=== PATIENT | male | born 1975 | race Caucasian/White ===

== ENCOUNTER 2021-08-15 18:42 | Emergency (ER) | payer MEDICAID, SELFPAY ==
[2021-08-15 18:55] VITALS: BP 144/95; PULSE 77; RESP 15; O2SAT 95
--- NOTE | 2021-08-15 18:55 | CTR_ITS ---
PROCEDURE INFORMATION: Exam: CT Abdomen And Pelvis Without Contrast Exam date and time: 08/15/2021 7:13 PM Age: 45 years old Clinical indication: Abdominal pain; Localized; Right upper quadrant (ruq); Additional info: Ruq abd pain TECHNIQUE: Imaging protocol: Computed tomography of the abdomen and pelvis without contrast. Radiation optimization: All CT scans at this facility use at least one of these dose optimization techniques: automated exposure control; mA and/or kV adjustment per patient size (includes targeted exams where dose is matched to clinical indication); or iterative reconstruction. COMPARISON: No relevant prior studies available. RADIATION DOSE METRICS: Total DLP (mGy-cm): 2033.74 FINDINGS: Lungs: 5 mm lingular nodule. Diaphragm: Small hiatal hernia. Liver: Normal. No mass. Gallbladder and bile ducts: Partially contracted gallbladder. The bile ducts are normal. Pancreas: Normal. No ductal dilation. Spleen: Normal. No splenomegaly. Adrenal glands: Normal. No mass. Kidneys and ureters: Normal. No hydronephrosis. Stomach and bowel: Unremarkable. No obstruction. No mucosal thickening. Appendix: The appendix is visualized and is normal. Intraperitoneal space: Unremarkable. No free air. No significant fluid collection. Vasculature: Mild arterial calcifications. No aneurysm. Lymph nodes: Unremarkable. No enlarged lymph nodes. Urinary bladder: Unremarkable as visualized. Reproductive: Unremarkable as visualized. Bones/joints: Unremarkable. No acute fracture. Soft tissues: Unremarkable. CT/CT abdomen pelvis wo con [id number] IMPRESSION: 1. No acute finding. 2. 5 mm left pulmonary nodule. For patients at low risk (minimal or absent history of smoking and of other known risk factors), no routine follow-up is indicated. For patients at high risk (history of smoking or of other known risk factors), consider optional CT Chest at 12 months. (Reference: Ricardo) References: Lindahocandace H, et al. Guidelines for Management of Incidental Pulmonary Nodules Detected on CT Images: From the Fleischner Society 2017. Radiology. 2017;284(1):228-243.
--- NOTE | 2021-08-15 18:55 | XRR_ITS ---
PROCEDURE INFORMATION: Exam: XR Chest Exam date and time: 08/15/2021 7:19 PM Age: 45 years old Clinical indication: Other: Syncope TECHNIQUE: Imaging protocol: Radiologic exam of the chest. Views: 1 view. COMPARISON: CT abdomen pelvis wo con [id number] 08/15/2021 7:13 PM FINDINGS: Lungs: Unremarkable. No consolidation. Pleural spaces: Unremarkable. No pleural effusion. No pneumothorax. Heart/Mediastinum: Unremarkable. No cardiomegaly. Bones/joints: Probable old left clavicle fracture. No acute fracture identified. XR/XR chest 1V portable [id number] IMPRESSION: No acute finding.
--- NOTE | 2021-08-15 18:55 | CTR_ITS ---
PROCEDURE INFORMATION: Exam: CT Head Without Contrast Exam date and time: 08/15/2021 7:10 PM Age: 45 years old Clinical indication: Syncope and collapse; Additional info: Syncope, hit head TECHNIQUE: Imaging protocol: Computed tomography of the head without contrast. Radiation optimization: All CT scans at this facility use at least one of these dose optimization techniques: automated exposure control; mA and/or kV adjustment per patient size (includes targeted exams where dose is matched to clinical indication); or iterative reconstruction. COMPARISON: No relevant prior studies available. RADIATION DOSE METRICS: Total DLP (mGy-cm): 912.01 FINDINGS: Brain: Normal. No hemorrhage. Unremarkable white matter. No mass effect. Cerebral ventricles: No ventriculomegaly. Paranasal sinuses: Visualized sinuses are unremarkable. No fluid levels. Mastoid air cells: Visualized mastoid air cells are well aerated. Bones/joints: Unremarkable. No acute fracture. Soft tissues: Unremarkable. CT/CT head wo con* [id number] IMPRESSION: No acute intracranial abnormality.
--- NOTE | 2021-08-15 18:55 | ECG_ITS ---
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 Measurements Intervals [place] Rate: 72 P: 61 [place]: 177 QRS: -23 QRSD: 102 T: 32 QT: 396 QTc: 434 Interpretive Statements SINUS RHYTHM BORDERLINE LEFT AXIS DEVIATION [QRS AXIS < -20] No previous ECG available for comparison Electronically Signed On 08-16-2021 8:36:57 CDT by César Garcia M.D. [id number]
[2021-08-15 19:13] LABS: Basophils # 0.1 10^3/uL (0.0-0.1); Basophils % 0.8 %; Eosinophils # 0.4 10^3/uL (0.0-0.8); Eosinophils % 3.2 %; Hematocrit 46.8 % (42.0-52.0); Hemoglobin 15.6 g/dL (11.7-16.6); Lymphocytes # 5.4 10^3/uL (0.8-4.8); Lymphocytes % 40.3 %; Mean Corpuscular HGB Conc 33.3 g/dL (30.0-36.0); Mean Corpuscular Hemoglobin 28.9 pg (28.0-34.0); Mean Corpuscular Volume 86.8 fl (80-94); Mean Platelet Volume 10.7 fL (7.4-10.4); Monocytes % 7.8 %; Neutrophils # 6.14 10^3/uL (1.8-7.7); Neutrophils % 46.4 %; Nucleated Red Blood Cells % 0 %; Platelet Count 255 10^3/cmm (130-400); Red Blood Count 5.39 10^6/uL (4.1-5.3); Red Cell Distribution Width 13.3 % (12.1-15.1); White Blood Count 13.3 10^3/uL (4.0-10.0)
[2021-08-15 19:24] LABS: INR 0.86 (0.8-1.2)
[2021-08-15 19:34] LABS: Troponin(5th) Baseline 6 ng/L (0-15)
[2021-08-15] MEDS: ondansetron 2 mg/ML SDV 2 mL 4 MG IVP (19:39)
[2021-08-15] MEDS: sodium chloride 0.9% 1,000 ML 999 ML IV (19:39)
[2021-08-15 19:44] LABS: Alanine Aminotransferase 96 U/L (0-41); Albumin Level 4.4 g/dL (3.5-5.2); Alkaline Phosphatase 80 IU/L (40-130); Aspartate Amino Transferase 42 U/L (0-40); Blood Urea Nitrogen 10 mg/dL (6-20); Calcium 9.5 mg/dL (8.5-10.5); Carbon Dioxide 26 mmol/L (22-29); Chloride 101 mmol/L (98-107); Creatine Phosphokinase 178 U/L (39-308); Globulin 3.1 g/dL (1.3-4.6); Glomerular Filtration Rate 123.1 mL/min (90-130); Glucose 107 mg/dL (65-115); NT Pro B Type Natriuretic Pept 13 pg/mL (0-125); Osmolality Calculated 284 mOsm/kg (285-295); Sodium 137 mmol/L (136-145); Total Bilirubin 0.4 mg/dL (0.15-1.2); Total Protein 7.5 g/dL (6.6-8.7)
[2021-08-15 19:46] LABS: Alcohol Level < 10 mg/dL (0-10)
[2021-08-15 19:47] LABS: Anion Gap 14.1 (5-19); Potassium 4.1 mmol/L (3.5-5.1)
[2021-08-15 20:34] LABS: Troponin 5 2HR Delta 0 ABS# (0-10)
--- NOTE | 2021-08-15 20:55 | ECG_ITS ---
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 Measurements Intervals [place] Rate: 66 P: 47 [place]: 174 QRS: -24 QRSD: 101 T: 22 QT: 417 QTc: 439 Interpretive Statements SINUS RHYTHM BORDERLINE LEFT AXIS DEVIATION [QRS AXIS < -20] No previous ECG available for comparison Electronically Signed On 08-16-2021 8:38:48 CDT by César Garcia M.D. [email or web address]
[2021-08-15] MEDS: ketorolac 30 mg/mL INJ 15 MG IVP (22:22)
[2021-08-15 22:37] VITALS: BP 138/81; PULSE 81; RESP 16; TEMP 36.7; O2SAT 96
--- NOTE | 2021-08-17 14:23 | W.ED.SYNCOPE ---
HPI - Syncope General: Chief Complaint: Syncope Stated Complaint: SYNCOPE Time Seen by Provider: 08/15/21 18:48 Source: patient History of Present Illness: 45 year old male staying at a local rehabilitation facility. He presents after a syncopal episode. He was evidently sitting on the bed. He became dizzy and nauseated. He woke up to someone shaking him. He notes that he has had belly pain for the past three days or so on and off. He vomited after his syncopal episode. He has a headache now as well. No weakness, no numbness. MD complaint: loss of consciousness Onset (ago): minute(s) -: second(s) Description of event: other Prodromal symptoms: headache, lightheaded and nausea/vomiting Witnessed: Yes - by Bystander Context: at rest Injuries sustained associated with event: none Associated symptoms: Reports abdominal pain, headache(s), lightheadedness and nausea; Deny chest pain, fever(s), short of breath, vertigo or weakness Review of Systems Const: Denies: fever(s) Eyes: Denies: change in vision ENMT: Denies: throat pain Card: Reports: lightheadedness; Denies: chest pain Resp: Denies: dyspnea, productive cough or non-productive cough GI: Reports: abdominal pain, nausea, vomiting and diarrhea Neuro: Reports: headache(s); Denies: vertigo Physical Exam Const: COMMON NORMALS: no acute distress GENERAL APPEARANCE: cooperative, comfortable and well kempt; not ill appearing and not frail appearing HENMT: COMMON NORMALS: normocephalic and atraumatic HEAD & SCALP: normocephalic and atraumatic FACE & SINUS: normal facial exam and face symmetric Eye: COMMON NORMALS: Equal, round and reactive pupils present and EOMs intact bilaterally PUPIL: Yes Equal, round and reactive pupils present Neck/C-Spine: GENERAL: Yes trachea midline Chest: CHEST: Yes Symmetrical chest wall rise Resp: COMMON NORMALS: normal respiratory effort, No retractions, No use of accessory muscles and clear to auscultation bilaterally AUSCULTATION: clear to auscultation bilaterally Cardio: COMMON NORMALS: regular rate and regular rhythm RATE: regular rate RHYTHM: regular rhythm GI: COMMON NORMALS: Normal to inspection, nondistended, normoactive bowel sounds present PALPATION: Yes Tenderness to palpation present (GI) (diffusely) Extremity: COMMON NORMALS: normal to inspection Neuro: BILL COMA SCALE: document GCS findings Bill coma scale eye opening: Spontaneous Bill coma scale verbal response: Orientated Bill coma scale motor response: Obey commands Kitzmiller coma scale total score: 15 CRANIAL NERVES: Yes CN normal except as noted COORDINATION/BALANCE: [id number] test normal SPEECH: speech normal SENSORY EXAM: Yes extremities (intact) MOTOR EXAM: Pronator motor function not present COORDINATION: [id number] test normal Psych: APPEARANCE: Yes well kempt Course Vital Signs: Vital signs: Vital Signs Temperature 98.1 F 08/15/21 22:37 Pulse Rate 81 08/15/21 22:37 Respiratory Rate 16 08/15/21 22:37 Blood Pressure 138/81 08/15/21 22:37 Pulse Oximetry 96 08/15/21 22:37 MDM - Syncope Medical Decision Making Patient feeling significantly improved after a liter of fluid here. White blood cell count is 13.3. Chest X ray is negative. Head and abdominal CT's are essentially negative as well. Laboratories otherwise been nine. History opponent did not elevate. His EKG is normal. he'll be allowed home. Lab Data : 08/15/21 18:25 08/15/21 18:25 Radiology Impressions Abdomen/Pelvis CT 08/15/21 18:55 IMPRESSION: 1. No acute finding. 2. 5 mm left pulmonary nodule. For patients at low risk (minimal or absent history of smoking and of other known risk factors), no routine follow-up is indicated. For patients at high risk (history of smoking or of other known risk factors), consider optional CT Chest at 12 months. (Reference: Ricardo) References: Ricardo Beltran, et al. Guidelines for Management of Incidental Pulmonary Nodules Detected on CT Images: From the Fleischner Society 2017. Radiology. 2017;284(1):228-243. Chest X-Ray 08/15/21 18:55 IMPRESSION: No acute finding. Head CT 08/15/21 18:55 IMPRESSION: No acute intracranial abnormality. Laboratory Results WBC 13.3 10^3/uL (4.0-10.0) H 08/15/21 18:25 RBC 5.39 10^6/uL (4.1-5.3) H 08/15/21 18:25 Hgb 15.6 g/dL (11.7-16.6) 08/15/21 18:25 Hct 46.8 % (42.0-52.0) 08/15/21 18: MCV 86.8 fl (80-94) 08/15/21 18:25 MCH 28.9 pg (28.0-34.0) 08/15/21 18: MCHC 33.3 g/dL (30.0-36.0) 08/15/21 18: RDW 13.3 % (12.1-15.1) 08/15/21 18: Plt Count 255 10^3/cmm (130-400) 08/15/21 18: MPV 10.7 fL (7.4-10.4) H 08/15/21 18:25 Neut % (Auto) 46.4 % 08/15/21 18: Lymph % (Auto) 40.3 % 08/15/21 18:25 Miner % (Auto) 7.8 % 08/15/21 18: Eos % (Auto) 3.2 % 08/15/21 18:25 Baso % (Auto) 0.8 % 08/15/21 18: Neut # (Auto) 6.14 10^3/uL (1.8-7.7) 08/15/21 18: Lymph # (Auto) 5.4 10^3/uL (0.8-4.8) H 08/15/21 18:25 Miner # (Auto) 1.0 10^3/uL (0.2-0.9) H 08/15/21 18:25 Eos # (Auto) 0.4 10^3/uL (0.0-0.8) 08/15/21 18:25 Baso # (Auto) 0.1 10^3/uL (0.0-0.1) 08/15/21: Nucleated RBC % (auto) 0 % 08/15/21: Nucleated RBCs # 0.0 /100WBC 08/15/21: PT 12.10 SECONDS (12.1-14.9) 08/15/21: INR 0.86 (0.8-1.2) 08/15/21 18: Sodium 137 mmol/L (136-145) 08/15/21 18:25 Potassium 4.1 mmol/L (3.5-5.1) 08/15/21 18:25 Chloride 101 mmol/L (98-107) 08/15/21 18:25 Carbon Dioxide 26 mmol/L (22-29) 08/15/21 18:25 Anion Gap 14.1 (5-19) 08/15/21 18:25 BUN 10 mg/dL (6-20) 08/15/21 18:25 Creatinine 0.7 mg/dL (0.7-1.2) 08/15/21 18:25 GFR Calculation 123.1 mL/min (90-130) 08/15/21 18:25 Glucose 107 mg/dL (65-115) 08/15/21 18:25 Calculated Osmolality 284 mOsm/kg (285-295) L 08/15/21 18:25 Calcium 9.5 mg/dL (8.5-10.5) 08/15/21 18:25 Total Bilirubin 0.4 mg/dL (0.15-1.2) 08/15/21 18:25 AST 42 U/L (0-40) H 08/15/21 18:25 ALT 96 U/L (0-41) H 08/15/21 18:25 Alkaline Phosphatase 80 IU/L (40-130) 08/15/21 18:25 Creatine Kinase 178 U/L (39-308) 08/15/21 18:25 Troponin T Baseline 6 ng/L (0-15) 08/15/21 18:25 Troponin T 120 Minute 6.00 ng/L (0-15) 08/15/21 20:00 Delta Troponin T 0 ABS# (0-10) 08/15/21 20:00 NT-Pro-B Natriuret Pep 13 pg/mL (0-125) 08/15/21 18:25 Total Protein 7.5 g/dL (6.6-8.7) 08/15/21 18:25 Albumin 4.4 g/dL (3.5-5.2) 08/15/21 18:25 Globulin 3.1 g/dL (1.3-4.6) 08/15/21 18:25 Ethyl Alcohol < 10 mg/dL (0-10) 08/15/21 18:25 Discharge Plan Discharge Patient Disposition: Home Clinical Impression: Syncope, Headache Condition: Stable Discharge Orders: Discharge ED (Routine); Ordered 08/15/21 Ordered By: Cricket Hackett Discharge Diet: Advance as tolerated Discharge Activity: Increase activity as tolerated Patient Instructions: Syncope (ED) Activity Restrictions/Additional Instructions: Return for fever, worsening headache, mental status changes, weakness, repeated episodes of syncope or passing out, chest discomfort or other concerning symptoms. Coding Level of Care Code ED Industrial Health Engineer for Svitlana Marie
== END 2021-08-15 22:39 | disposition home or self-care (01) ==
PROVIDERS: Emergency Provider Emergency Medicine
DX: R55 Syncope and collapse (principal); R51.9 Headache, unspecified
CPT/HCPCS: 70450; 71045; 74176; 80053; 80307; 82550; 83880; 84484; 85025; 85610; 93005; 96361; 96374; 96375; 99285; J1885; J2405; J7030

== ENCOUNTER 2021-10-13 14:16 | Outpatient (CLI) | payer MEDICAID, SELFPAY ==
[2021-10-13 16:04] LABS: Hepatitis B Core AB, Total Non-Reactive (Nonreactive); Hepatitis B Surface AB 3.5 (11.5-1000); Hepatitis B Surface Antigen Non-Reactive (Nonreactive)
[2021-10-13 16:07] LABS: Tumor Marker Alpha Fetoprotein 3.7 ng/mL (0-8.3)
[2021-10-15 20:18] LABS: HEP C RNA Viral Load Quant 6.92 Log IU/mL (NOT DETECTED); HEP C RNA Viral Load Quant 8300000 IU/mL (NOT DETECTED)
== END 2021-10-13 14:17 | disposition home or self-care (01) ==
LOC: LAB 14:19
PROVIDERS: Visit Provider Internal Medicine
DX: B18.2 Chronic viral hepatitis C (principal); R76.8 Other specified abnormal immunological findings in serum; B19.20 Unspecified viral hepatitis C without hepatic coma
CPT/HCPCS: 82105; 86705; 86706; 87340; 87522; 87902

== ENCOUNTER 2021-11-16 10:39 | Day surgery (SDC) | payer MEDICAID, SELFPAY ==
[2021-11-13 08:51] VITALS: BMI 34.0
[2021-11-16] VITALS (10 sets, daily range): BP systolic 102–143; BP diastolic 70–99; PULSE 65–83; RESP 14–20; TEMP 36.3–37.1; O2SAT 92–97
--- NOTE | 2021-11-16 10:34 | P.ANESASSM_ITS ---
Pre-Anesthetic Assessment Height/Weight: Height 1.88 m Weight 120.202 kg Preop Diagnosis: Lipoma Operation Date: 11/16/21 12:30 Proposed Procedures p excsion of back mass 56282,D17.1(Not Applicable) - Evangelista Osman MD Familial anesthetic complications: None Was Beta Jose taken within 24 hours: Yes Was Clonidine taken within 24 hours: N/A Social Tobacco and No alcohol Exam alert, oriented x 3, clear to auscultation bilaterally and regular rate & rhythm Airway Submandibular: within normal limits Cervical ROM: within normal limits Mallampati: Class I Dentition: false Pulmonary None reported CV/HEM Hypertension METS > 4 None reported Hepatic Hepatitis (C) GI None reported Metabolic None reported Musc/skel Back lipoma Neuropsych None reported Anesthetic Plan ASA status: 2 Anesthesia: Anesthesia Evaluation and General Other: We discussed risk and benefits of general anesthesia including PONV, sore throat (sometimes severe), corneal abrasion, positioning and peripheral nerve injuries, life threatening allergic reaction, post operative ICU admission requiring prolonged intubation, aspiration, stroke, heart attack, , and rare incidences of recall. Patient consents to proceed with general anesthesia. Risk of > 500 ml blood loss (7ml/kg in children): No Medications/Allergies Home Medications Medication Instructions Recorded Confirmed Last Taken Type baclofen 10 mg tablet 10 mg PO TID 10/13/21 11/16/21 11/15/21 History buspirone 15 mg tablet 15 mg PO BID 10/13/21 11/16/21 11/15/21 History fluoxetine 60 mg tablet 60 mg PO DAILY 10/13/21 11/16/21 11/15/21 History gabapentin 100 mg capsule 200 mg PO DAILY 10/13/21 11/16/21 11/15/21 History hydroxyzine HCl 50 mg tablet 50 mg PO TID 10/13/21 11/16/21 11/15/21 History ibuprofen 800 mg tablet 800 mg PO Q6H 10/13/21 11/16/21 11/13/21 History lisinopril 20 mg tablet 20 mg PO DAILY 10/13/21 11/16/21 11/15/21 History prazosin 1 mg capsule 1 mg PO DAILY 10/13/21 11/16/21 11/15/21 History propranolol 10 mg tablet 30 mg PO TID 10/13/21 11/16/21 11/15/21 History quetiapine 300 mg tablet 300 mg PO DAILY 10/13/21 11/16/21 11/15/21 History glecaprevir 100 mg-pibrentasvir 40 3 tab PO DAILY 12 weeks #84 tabs 11/12/21 11/16/21 11/15/21 Rx mg tablet (Mavyret) Allergies Allergy/AdvReac Type Severity Reaction Status Date / Time No Known Allergies Allergy Verified 11/16/21 10:51 [facility] Anesthesia Surgical History No pertinent past surgical history Family History Father No problems noted. Mother Low-resistance pulmonary hypertension Social History Smoking and tobacco status: current every day smoker Quit status (tobacco): not considering quitting Second hand smoke exposure: Yes Smoking risk assessment/counseling performed?: No Alcohol intake: never Desire information about alcohol rehabilitation?: No Counseling given: No Desire information about substance/drug rehabilitation?: No Counseling given: No Adopted: No Caregiver/support person: No Lives independently: No Household members: other Housing: Other Marital status: Number of children: 2 Highest education level completed: GED or Equivalent service: No Current occupational status: unemployed History of recent travel: No Data Anesthesia Cardiac Studies: No Data to Display
[2021-11-16] MEDS: sodium chloride 0.9% 1,000 ML 30 ML IV (11:11)
[2021-11-16] MEDS: acetaminophen 1,000 MG/100 ML PIGGYBACK 400 MG IV (11:12)
--- NOTE | 2021-11-16 11:24 | W.PM.OPSUD ---
Surgery/Procedure H&P Update DATE OF PROCEDURE: November 16, 2021 DATE H&P PERFORMED: 10/28/21 H&P UPDATE INFORMATION: I have reviewed H&P completed within last 30 days, I have examined patient prior to procedure and No changes to prior documentation PREOP DIAGNOSIS: Back mass PRIMARY INDICATION FOR PROCEDURE: The same PLANNED PROCEDURE: Operation Date: 11/16/21 12:30 Proposed Procedures p excsion of back mass 85460,D17.1(Not Applicable) - Evangelista Osman MD
[2021-11-16] MEDS: ceFAZolin 2,000 MG in sodium chloride 0.9% (plus) 50 ML 100 MG IV (12:42)
[2021-11-16] MEDS: lidocaine 2% INJ 20 mL INJECTION (13:06)
--- NOTE | 2021-11-16 13:15 | PM.OP ---
Operative Report Date of procedure: November 16, 2021 Pre-op diagnosis: Preop Diagnosis Lipoma Post-op diagnosis: 7 x 7 cm sebaceous cyst of the back Procedure done: Excision of a back mass Specimens removed/disposition: Back mass(sebaceous cyst) Surgeon: Evangelista Osman MD Chief Design Branch: metallurgical technician Josseline Zuñiga nurse Loree Anesthesia: General (LMA basket person Jacki and Keri) Estimated blood loss (mL): 5 IV fluids (mL): 600 Procedure: After identifying the patient holding area, both back masses were marked before the procedure by myself, patient was then taken to the operative suite, was placed in left lateral position, all pressure points were padded patient was appropriately secured to the bed, IV antibiotics were given per protocol,IV propofol was infused by the anesthesia provider, prep and drape of the mid back region was done under the usual sterile technique. Time-out was done verifying the patient's name/date of /planned procedure and destination after the procedure, all were in agreement. Infiltration of lidocaine 2%. Started with mid back mass. I did an elliptical incision on top of the mass including the punctum. I was able to dissect using sharp dissection and the whole cyst was excised from the surrounding tissues measure about 7 x 7 cm, the cyst was totally dissected and there was evidence of sebum and was sent off for permanent pathology. Thorough irrigation of the cavity was done and hemostasis, followed by transverse horizontal 2-0 nylon at the lateral components of the wound, leaving a gap in between the sutures followed by packing using half inch Nu Gauze followed by pressure. Patient tolerated the procedure well, count of instruments, needles and sponges were completed at the end of the procedure. And then patient was taken to the recovery area in stable condition. I was present for the whole entire procedure
[2021-11-16] MEDS: HYDROcodone-acetaminophen 5-325 mg Tablet 1 TAB PO (14:34)
--- NOTE | 2021-11-16 14:36 | ANE.PACU2 ---
Inpatient post-anesthesia follow up: Airway intact: Yes Vital signs: Temperature 98.8 F Pulse Rate 76 Respiratory Rate 17 Blood Pressure 108/78 Pulse Oximetry 92 Oxygen Delivery Me thod Room Air Oxygen Flow Rate 8 Fraction of Inspir ed Oxygen Hydration adequate: Yes Nausea and vomiting: No Pain level: 1 Mental status: Baseline
== END 2021-11-16 14:42 | disposition home or self-care (01) ==
PROVIDERS: Visit Provider Surgery
PROC: (CPT 11406; principal; 2021-11-16 12:20)
DX: L72.0 Epidermal cyst (principal); I10 Essential (primary) hypertension; Z86.19 Personal history of other infectious and parasitic diseases; F17.210 Nicotine dependence, cigarettes, uncomplicated
CPT/HCPCS: 11406; 12032; 88307; J1100; J2250; J2405; J2704; J3010; J7030

== ENCOUNTER 2021-11-25 13:56 | Emergency (ER) | payer MEDICAID, SELFPAY ==
[2021-11-25 14:00] VITALS: BP 172/104; PULSE 101; RESP 18; TEMP 37.1; O2SAT 94; BMI 34.0
--- NOTE | 2021-11-25 14:07 | ED.C_ITS ---
HPI - Psych General: Chief Complaint: Psychiatric Symptoms Stated Complaint: SI Time Seen by Provider: 11/25/21 14:06 Source: patient Mode of arrival: ambulatory Limitations: no limitations History of Present Illness: 45-year-old male presents to the emergency room complaint suicidal ideation. Patient was recently at [facility] for substance abuse he was discharged from there but he ran out of his medications about 1 week ago and now is having increasing suicidal thoughts. He is on buspirone and fluoxetine hydroxyzine prazosin and quetiapine as well as propranolol. He has not done anything at this point to advance lethality. He has in the past tried to hang himself. He states he thinks that he did restart his medication he would do well right. MD complaint: suicidal ideation Onset (ago): day(s) Duration: intermittent Relieving factors: none Exacerbating factors: none Associated psychiatric symptoms: depression and suicidal ideation Associated symptoms: Reports suicidal ideation Treatments prior to arrival: none If self harm: admits thoughts of self harm and has plan Review of Systems Const: Denies: fever(s), chills, body aches, change in appetite, fatigue or malaise ENMT: Denies: throat pain, ear or mastoid pain, nasal discharge or nasal congestion Card: Denies: chest pain, edema, dyspnea on exertion or orthopnea Resp: Denies: dyspnea, productive cough or non-productive cough GI: Denies: abdominal pain, nausea, vomiting, hematemesis, coffee ground emesis, diarrhea, constipation, bloating, hematochezia or melena : Denies: flank pain, dysuria, urinary frequency or urinary urgency Skin/Breast: Denies: rash or pruritus Psych: Reports: suicidal ideation [facility] ED PFSH: Surgical History No pertinent past surgical history Family History Father No problems noted. Mother Low-resistance pulmonary hypertension Social History Smoking and tobacco status: current every day smoker Quit status (tobacco): not considering quitting Second hand smoke exposure: Yes Smoking risk assessment/counseling performed?: No Alcohol intake: never Desire information about alcohol rehabilitation?: No Counseling given: No Desire information about substance/drug rehabilitation?: No Counseling given: No Adopted: No Caregiver/support person: No Lives independently: No Household members: other Housing: Other Marital status: Number of children: 2 Highest education level completed: GED or Equivalent service: No Current occupational status: unemployed History of recent travel: No Physical Exam Const: COMMON NORMALS: no acute distress GENERAL APPEARANCE: cooperative and comfortable ORIENTATION/CONSCIOUSNESS: Yes awake, Yes oriented to person, Yes oriented to place and Yes oriented to time HENMT: COMMON NORMALS: normocephalic, atraumatic and hearing grossly normal bilaterally HEAD & SCALP: normocephalic and atraumatic Resp: COMMON NORMALS: normal respiratory effort, No retractions, No use of accessory muscles and clear to auscultation bilaterally AUSCULTATION: clear to auscultation bilaterally Cardio: COMMON NORMALS: regular rate, regular rhythm and No murmurs present (Cardio) RATE: regular rate RHYTHM: regular rhythm GI: COMMON NORMALS: Soft to palpation and No hepatosplenomegaly present AUSCULTATION: Yes normoactive bowel sounds PALPATION: Yes Soft to palpation, No Tenderness to palpation present (GI), No Guarding due to palpation present (GI) and Yes No hepatosplenomegaly present Extremity: COMMON NORMALS: normal to inspection, capillary refill normal, no clubbing, cyanosis or edema, no calf tenderness and no pedal edema Neuro: SENSORIUM/ORIENTATION: Yes oriented to person, Yes oriented to place and Yes oriented to time Skin: COMMON NORMALS: no rashes or lesions noted GENERAL SKIN EXAM: no rashes or lesions noted Course 2 Vital Signs: Vital signs: Vital Signs Temperature 98.7 F 11/25/21 14:00 Pulse Rate 101 H 11/25/21 14:00 Respiratory Rate 18 11/25/21 14:00 Blood Pressure 172/104 11/25/21 14:00 Pulse Oximetry 94 11/25/21 14:00 Oxygen Delivery Me thod 11/25/21 14:00 MDM - Psych Medical Decision Making Patient states he has had thoughts of suicide in the past but is not particularly suicidal at this time. He feels that he restart his medications he will do fine. I called and that did reviewed the case with Dr. Hardwick he concurs that the patient is well motivated to pursue outpatient and is not expressing active suicidal thoughts at this point he could be discharged home. When I reviewed again with the patient he is actually preferring now to restart his medicines and discharge home he states he has thought about suicide when he is felt like this in the past but does not state he is feeling actively like doing it now. Given all this and having reviewed with Dr. Hardwick we will go and discharge patient home. Medical Records I reviewed the patient's medical records. Lab Data I reviewed the patient's lab results. : 11/25/21 15:06 11/25/21 15:06 Laboratory Results WBC 12.1 10^3/uL (4.0-10.0) H 11/25/21 15:06 RBC 5.77 10^6/uL (4.1-5.3) H 11/25/21 15:06 Hgb 16.5 g/dL (11.7-16.6) 11/25/21 15:06 Hct 50.2 % (42.0-52.0) 11/25/21 15:06 MCV 87.0 fl (80-94) 11/25/21 15:06 MCH 28.6 pg (28.0-34.0) 11/25/21 15:06 MCHC 32.9 g/dL (30.0-36.0) 11/25/21 15:06 RDW 13.6 % (12.1-15.1) 11/25/21 15:06 Plt Count 293 10^3/cmm (130-400) 11/25/21 15:06 MPV 9.4 fL (7.4-10.4) 11/25/21 15:06 Neut % (Auto) 55.9 % 11/25/21 15:06 Lymph % (Auto) 33.5 % 11/25/21 15:06 [place] % (Auto) 7.6 % 11/25/21 15:06 Eos % (Auto) 1.4 % 11/25/21 15:06 Baso % (Auto) 0.7 % 11/25/21 15:06 Neut # (Auto) 6.74 10^3/uL (1.8-7.7) 11/25/21 15:06 Lymph # (Auto) 4.0 10^3/uL (0.8-4.8) 11/25/21 15:06 [place] # (Auto) 0.9 10^3/uL (0.2-0.9) 11/25/21 15:06 Eos # (Auto) 0.2 10^3/uL (0.0-0.8) 11/25/21 15:06 Baso # (Auto) 0.1 10^3/uL (0.0-0.1) 11/25/21 15:06 Nucleated RBC % (auto) 0 % 11/25/21 15:06 Nucleated RBCs # 0.0 /100WBC 11/25/21 15:06 Sodium 132 mmol/L (136-145) L 11/25/21 15:06 Potassium 4.5 mmol/L (3.5-5.1) 11/25/21 15:06 Chloride 100 mmol/L (98-107) 11/25/21 15:06 Carbon Dioxide 20 mmol/L (22-29) L 11/25/21 15:06 Anion Gap 16.5 (5-19) 11/25/21 15:06 BUN 12 mg/dL (6-20) 11/25/21 15:06 Creatinine 0.7 mg/dL (0.7-1.2) 11/25/21 15:06 GFR Calculation 123.1 mL/min (90-130) 11/25/21 15:06 Glucose 109 mg/dL (65-115) 11/25/21 15:06 Calculated Osmolality 274 mOsm/kg (285-295) L 11/25/21 15:06 Calcium 9.4 mg/dL (8.5-10.5) 11/25/21 15:06 Total Bilirubin 1.0 mg/dL (0.15-1.2) 11/25/21 15:06 AST 60 U/L (0-40) H 11/25/21 15:06 ALT 145 U/L (0-41) H 11/25/21 15:06 Alkaline Phosphatase 89 U/L (40-130) 11/25/21 15:06 Total Protein 8.4 g/dL (6.6-8.7) 11/25/21 15:06 Albumin 3.8 g/dL (3.5-5.2) 11/25/21 15:06 Globulin 4.6 g/dL (1.3-4.6) 11/25/21 15:06 Salicylates < 0.3 mg/dL (3-10) L 11/25/21 15:06 Acetaminophen < 5.0 ug/mL (10-30) L 11/25/21 15:06 Discharge Plan Discharge Patient Disposition: Home Clinical Impression: Depression, Chronic schizophrenia Condition: Stable Prescriptions: New buspirone 15 mg tablet 15 mg PO BID Qty: 60 0RF fluoxetine 60 mg tablet 60 mg PO DAILY Qty: 30 0RF hydroxyzine HCl 50 mg tablet 50 mg PO TID PRN (Reason: anxiety) Qty: 90 0RF prazosin 1 mg capsule 1 mg PO DAILY Qty: 30 0RF quetiapine 300 mg tablet 300 mg PO .qhs Qty: 30 0RF No Action hydroxyzine HCl 50 mg tablet 50 mg PO TID ibuprofen 800 mg tablet 800 mg PO Q6H PRN (Reason: Pain) Hold Instructions: Resume on 11/21/21. baclofen 10 mg tablet 10 mg PO TID quetiapine 300 mg tablet 300 mg PO BEDTIME buspirone 15 mg tablet 15 mg PO BID fluoxetine 60 mg tablet 60 mg PO DAILY lisinopril 20 mg tablet 20 mg PO DAILY gabapentin 100 mg capsule 200 mg PO DAILY prazosin 1 mg capsule 1 mg PO BEDTIME propranolol 10 mg tablet 30 mg PO TID Mavyret 100-40 mg tablet 3 tab PO DAILY 84 Days Qty: 84 1RF Rx Instructions: must administer with a meal/food hydrocodone-acetaminophen 5-325 mg tablet 1 tab PO Q6H PRN (Reason: pain) Qty: 14 0RF Discharge Orders: Discharge ED (Routine); Ordered 11/25/21 Ordered By: Cornelius Starks Discharge Diet: Usual diet Discharge Activity: Resume usual activity Patient Instructions: Opioid Safety, Pain Management Activity Restrictions/Additional Instructions: Case management make arrangements for her to follow-up at [facility]. Coding Level of Care Code ED Monitoring Analyst for Svitlana Fwmark Exam Detailed
[2021-11-25 15:09] LABS: Basophils # 0.1 10^3/uL (0.0-0.1); Basophils % 0.7 %; Eosinophils # 0.2 10^3/uL (0.0-0.8); Eosinophils % 1.4 %; Hematocrit 50.2 % (42.0-52.0); Hemoglobin 16.5 g/dL (11.7-16.6); Lymphocytes % 33.5 %; Mean Corpuscular HGB Conc 32.9 g/dL (30.0-36.0); Mean Corpuscular Hemoglobin 28.6 pg (28.0-34.0); Mean Platelet Volume 9.4 fL (7.4-10.4); Monocytes # 0.9 10^3/uL (0.2-0.9); Monocytes % 7.6 %; Neutrophils # 6.74 10^3/uL (1.8-7.7); Neutrophils % 55.9 %; Nucleated Red Blood Cells % 0 %; Platelet Count 293 10^3/cmm (130-400); Red Blood Count 5.77 10^6/uL (4.1-5.3); Red Cell Distribution Width 13.6 % (12.1-15.1); White Blood Count 12.1 10^3/uL (4.0-10.0)
[2021-11-25 15:36] LABS: Alanine Aminotransferase 145 U/L (0-41); Albumin Level 3.8 g/dL (3.5-5.2); Alkaline Phosphatase 89 U/L (40-130); Blood Urea Nitrogen 12 mg/dL (6-20); Calcium 9.4 mg/dL (8.5-10.5); Carbon Dioxide 20 mmol/L (22-29); Chloride 100 mmol/L (98-107); Globulin 4.6 g/dL (1.3-4.6); Glomerular Filtration Rate 123.1 mL/min (90-130); Glucose 109 mg/dL (65-115); Osmolality Calculated 274 mOsm/kg (285-295); Sodium 132 mmol/L (136-145); Total Protein 8.4 g/dL (6.6-8.7)
[2021-11-25 15:38] LABS: Acetaminophen < 5.0 ug/mL (10-30); Salicylate < 0.3 mg/dL (3-10)
[2021-11-25 15:39] LABS: Anion Gap 16.5 (5-19); Aspartate Amino Transferase 60 U/L (0-40); Potassium 4.5 mmol/L (3.5-5.1)
== END 2021-11-25 15:48 | disposition home or self-care (01) ==
PROVIDERS: Emergency Provider Family Medicine
DX: F32.A Depression, unspecified (principal); F20.9 Schizophrenia, unspecified; F17.210 Nicotine dependence, cigarettes, uncomplicated
CPT/HCPCS: 80053; 80307; 85025; 99283

== ENCOUNTER 2022-04-12 20:32 | Inpatient (IN) | payer MEDICAID, SELFPAY ==
[2022-04-12 20:39] VITALS: BP 180/115; PULSE 125; RESP 22; TEMP 36.4; O2SAT 95; BMI 35.3
[2022-04-12] MEDS: LORazepam 2 mg Tablet PO (20:56)
--- NOTE | 2022-04-12 21:10 | ED.C_ITS ---
HPI - Psych General: Chief Complaint: Psychiatric Symptoms Stated Complaint: SI Time Seen by Provider: 04/12/22 20:45 Source: patient Mode of arrival: ambulatory Limitations: no limitations History of Present Illness: 46-year-old male with history of depression he states that he has been having increasing thoughts of suicide. He states that he has a plan of hanging himself and states that he is been having more and more thoughts and is concerned he may actually do it and came here wanting to get he lp. He states he is previously admitted in July but nothing since then. He denies any worsening improving factors. Associated symptoms: Reports depression and suicidal ideation Review of Systems Const: Denies: fever(s), chills, body aches or change in appetite Eyes: Denies: blurry vision or eye discomfort ENMT: Denies: throat pain or dental pain Card: Denies: chest pain Resp: Denies: dyspnea GI: Denies: abdominal pain, nausea, vomiting or diarrhea : Denies: dysuria Musc: Denies: neck pain or back pain Skin/Breast: Denies: rash Neuro: Denies: headache(s) Psych: Reports: depression and suicidal ideation [place]/Lymph: Denies: easy bruising All/Imm: Denies: urticaria PFSH ED PFSH: Surgical History No pertinent past surgical history Family History Father No problems noted. Mother Low-resistance pulmonary hypertension Social History Smoking and tobacco status: current every day smoker Quit status (tobacco): not considering quitting Second hand smoke exposure: Yes Smoking risk assessment/counseling performed?: No Alcohol intake: never Desire information about alcohol rehabilitation?: No Counseling given: No Desire information about substance/drug rehabilitation?: No Counseling given: No Adopted: No Caregiver/support person: No Lives independently: No Household members: other Housing: Other Marital status: Number of children: 2 Highest education level completed: GED or Equivalent service: No Current occupational status: unemployed Physical Exam Const: COMMON NORMALS: no acute distress, patient oriented x3 and healthy appearing HENMT: COMMON NORMALS: normocephalic and atraumatic HEAD & SCALP: normocephalic and atraumatic Eye: COMMON NORMALS: Equal, round and reactive pupils present and EOMs intact bilaterally PUPIL: Yes Equal, round and reactive pupils present Neck/C-Spine: COMMON NORMALS: full ROM and supple Chest: COMMONS NORMALS: normal inspection of the chest and normal palpation of entire chest wall Resp: COMMON NORMALS: normal respiratory effort, No retractions, No use of accessory muscles and clear to auscultation bilaterally AUSCULTATION: clear to auscultation bilaterally Cardio: COMMON NORMALS: regular rate, regular rhythm and No murmurs present (Cardio) RATE: regular rate RHYTHM: regular rhythm GI: COMMON NORMALS: Normal to inspection, nondistended, normoactive bowel sounds present, Soft to palpation, non-tender and no masses PALPATION: Yes Soft to palpation Extremity: COMMON NORMALS: normal to inspection and full ROM Neuro: COMMON NORMALS: patient oriented x3, moves all extremities and no focal motor deficits Psych: COMMON NORMALS: mental status grossly normal, Normal thought process present and cooperative MOOD & AFFECT: Yes depressed mood THOUGHT PROCESS: Normal thought process present THOUGHT CONTENT: Yes Suicidality present Skin: COMMON NORMALS: no rashes or lesions noted and no wounds GENERAL SKIN EXAM: no rashes or lesions noted Course Vital Signs: Vital signs: Vital Signs Temperature 97.5 F L 04/12/22 20:39 Pulse Rate 125 H 04/12/22 20:39 Respiratory Rate 22 H 04/12/22 20:39 Blood Pressure 180/115 04/12/22 20:39 Pulse Oximetry 95 04/12/22 20:39 Oxygen Delivery Me thod 04/12/22 20:39 MDM - Psych Medical Decision Making Patient presents for suicidal ideation with a plan of hanging himself patient was placed on a 96-hour hold I spoke to Dr. Hardwick and will admit at this time he has been cooperative here he was originally hypertensive and tachycardic his blood pressure and heart rate have improved here. Lab Data 04/12/22 21:13 04/12/22 21:13 Laboratory Results WBC 14.4 10^3/uL (4.0-10.0) H 04/12/22 21:13 RBC 5.76 10^6/uL (4.1-5.3) H 04/12/22 21:13 Hgb 16.5 g/dL (11.7-16.6) 04/12/22 21:13 Hct 50.9 % (42.0-52.0) 04/12/22 21:13 MCV 88.4 fl (80-94) 04/12/22 21:13 MCH 28.6 pg (28.0-34.0) 04/12/22 21:13 MCHC 32.4 g/dL (30.0-36.0) 04/12/22 21:13 RDW 15.3 % (12.1-15.1) H 04/12/22 21:13 Plt Count 274 10^3/cmm (130-400) 04/12/22 21:13 MPV 10.3 fL (7.4-10.4) 04/12/22 21:13 Neut % (Auto) 52.6 % 04/12/22 21:13 Lymph % (Auto) 36.3 % 04/12/22 21:13 [place] % (Auto) 7.6 % 04/12/22 21:13 Eos % (Auto) 1.5 % 04/12/22 21:13 Baso % (Auto) 0.8 % 04/12/22 21:13 Neut # (Auto) 7.59 10^3/uL (1.8-7.7) 04/12/22 21:13 Lymph # (Auto) 5.2 10^3/uL (0.8-4.8) H 04/12/22 21:13 [place] # (Auto) 1.1 10^3/uL (0.2-0.9) H 04/12/22 21:13 Eos # (Auto) 0.2 10^3/uL (0.0-0.8) 04/12/22 21:13 Baso # (Auto) 0.1 10^3/uL (0.0-0.1) 04/12/22 21:13 Nucleated RBC % (auto) 0 % 04/12/22 21:13 Nucleated RBCs # 0.0 /100WBC 04/12/22 21:13 Sodium 139 mmol/L (136-145) 04/12/22 21:13 Potassium 4.3 mmol/L (3.5-5.1) 04/12/22 21:13 Chloride 101 mmol/L (98-107) 04/12/22 21:13 Carbon Dioxide 27 mmol/L (22-29) 04/12/22 21:13 Anion Gap 15.3 (5-19) 04/12/22 21:13 BUN 12 mg/dL (6-20) 04/12/22 21:13 Creatinine 0.8 mg/dL (0.7-1.2) 04/12/22 21:13 GFR Calculation 105.0 mL/min (90-130) 04/12/22 21:13 Glucose 112 mg/dL (65-115) 04/12/22 21:13 Calculated Osmolality 289 mOsm/kg (285-295) 04/12/22 21:13 Calcium 9.6 mg/dL (8.5-10.5) 04/12/22 21:13 Total Bilirubin 0.6 mg/dL (0.15-1.2) 04/12/22 21:13 AST 41 U/L (0-40) H 04/12/22 21:13 ALT 80 U/L (0-41) H 04/12/22 21:13 Alkaline Phosphatase 103 U/L (40-130) 04/12/22 21:13 Total Protein 8.0 g/dL (6.6-8.7) 04/12/22 21:13 Albumin 4.1 g/dL (3.5-5.2) 04/12/22 21:13 Globulin 3.9 g/dL (1.3-4.6) 04/12/22 21:13 Salicylates < 0.3 mg/dL (3-10) L 04/12/22 21:13 Urine Opiates Screen Negative ng/mL (Negative) 04/12/22 20:49 Acetaminophen < 5.0 ug/mL (10-30) L 04/12/22 21:13 Ur Barbiturates Screen Negative ng/mL (Negative) 04/12/22 20:49 Ur Phencyclidine Scrn Negative ng/mL (Negative) 04/12/22 20:49 Ur Amphetamines Screen Negative ng/mL (Negative) 04/12/22 20:49 U Benzodiazepines Scrn Negative ng/mL (Negative) 04/12/22 20:49 Urine Cocaine Screen Negative ng/mL (Negative) 04/12/22 20:49 U Marijuana (THC) Screen Positive ng/mL (Negative) H 04/12/22 20:49 Ethyl Alcohol < 10 mg/dL (0-10) 04/12/22 21:13 Discharge Plan Discharge Patient Disposition: Admitted As Inpatient Clinical Impression: Suicidal ideation Condition: Stable Coding Level of Care Code ED Terrazzo Roller for Svitlana Marie
[2022-04-12 21:20] LABS: Basophils # 0.1 10^3/uL (0.0-0.1); Basophils % 0.8 %; Eosinophils # 0.2 10^3/uL (0.0-0.8); Eosinophils % 1.5 %; Hematocrit 50.9 % (42.0-52.0); Hemoglobin 16.5 g/dL (11.7-16.6); Lymphocytes # 5.2 10^3/uL (0.8-4.8); Lymphocytes % 36.3 %; Mean Corpuscular HGB Conc 32.4 g/dL (30.0-36.0); Mean Corpuscular Hemoglobin 28.6 pg (28.0-34.0); Mean Corpuscular Volume 88.4 fl (80-94); Mean Platelet Volume 10.3 fL (7.4-10.4); Monocytes # 1.1 10^3/uL (0.2-0.9); Monocytes % 7.6 %; Neutrophils # 7.59 10^3/uL (1.8-7.7); Neutrophils % 52.6 %; Nucleated Red Blood Cells % 0 %; Platelet Count 274 10^3/cmm (130-400); Red Blood Count 5.76 10^6/uL (4.1-5.3); Red Cell Distribution Width 15.3 % (12.1-15.1); White Blood Count 14.4 10^3/uL (4.0-10.0)
[2022-04-12 21:34] LABS: Amphetamines Screen Urine Negative (Negative); Barbiturates Screen Urine Negative (Negative); Benzodiazepines Screen Urine Negative (Negative); Cocaine Screen Urine Negative (Negative); Opiate Screen Urine Negative (Negative); PCP Screen Urine Negative (Negative); THC Screen Urine Positive (Negative)
[2022-04-12 21:49] LABS: Alanine Aminotransferase 80 U/L (0-41); Albumin Level 4.1 g/dL (3.5-5.2); Alkaline Phosphatase 103 U/L (40-130); Aspartate Amino Transferase 41 U/L (0-40); Blood Urea Nitrogen 12 mg/dL (6-20); Calcium 9.6 mg/dL (8.5-10.5); Carbon Dioxide 27 mmol/L (22-29); Chloride 101 mmol/L (98-107); Globulin 3.9 g/dL (1.3-4.6); Glucose 112 mg/dL (65-115); Osmolality Calculated 289 mOsm/kg (285-295); Sodium 139 mmol/L (136-145); Total Bilirubin 0.6 mg/dL (0.15-1.2)
[2022-04-12 21:50] LABS: Acetaminophen < 5.0 ug/mL (10-30); Alcohol Level < 10 mg/dL (0-10); Anion Gap 15.3 (5-19); Potassium 4.3 mmol/L (3.5-5.1); Salicylate < 0.3 mg/dL (3-10)
--- NOTE | 2022-04-12 22:09 | PC.NURSE ---
Copy of 96 HH served to pt by this RN and Security. Right reviewed with pt, all questions answered.
[2022-04-12 22:10] VITALS: BP 136/106; PULSE 98; RESP 18; O2SAT 97
[2022-04-12] MEDS: lisinopril 20 mg Tablet PO (22:12)
--- NOTE | 2022-04-12 22:20 | PC.NURSE ---
46yr.old male admitted to room#154-1. Arrived to unit from ED via w/c accompanied by ED staff and security. Patient is involuntary and was served papers in ED by tank house supervisor. Reviewed information again once patient arrived to floor. Patient was anxious and sad. Reported having SI with a plan to hang himself. Stated he has been feeling more depressed and anxious in the past few weeks. Rated anxiety and depression at a 10/ Patient did have an appointment with [facility] [place] for 04/13/22 but stated he didn't trust himself to not do something over night. Patient walked to ED from home. Denied AVH or HI. No c/o pain voiced. Skin assessment completed with no skin issues noted. Rules and expectations reviewed. Patient voiced understanding. Patient stated he went to [facility] on 08-09-21 to 12-09-21 and has not used meth since completing program. Cooperative with all care.
[2022-04-12 22:33] VITALS: BP 143/101; PULSE 115; RESP 20; TEMP 36.9; O2SAT 93
[2022-04-12 23:19] VITALS: BP 143/101; PULSE 115; RESP 20; TEMP 36.9; O2SAT 93
--- NOTE | 2022-04-12 23:40 | PC.NURSE ---
Patient requested prn's for sleep and anxiety. Rated anxiety at a 10/10. PRN vistaril and trazodone given as ordered.
[2022-04-12] MEDS: trazodone 50 mg Tablet PO (23:41)
[2022-04-12] MEDS: hyDROXYzine 25 mg Capsule 50 MG PO (23:41)
[2022-04-13] MEDS: trazodone 50 mg Tablet PO ×2 (01:28→21:03)
[2022-04-13 05:23] VITALS: BP 117/82; PULSE 106; RESP 20; TEMP 36.7; O2SAT 94
--- NOTE | 2022-04-13 07:27 | W.PM.NPUH&PS ---
Providers/Chief Complaint Admitting Physician: Myke Hardwick MD Chief Complaint: SI HPI NPU History of Present Illness Jaxon Coleman is a 46 year old male who presented to the emergency department with the following report: Chief Complaint: Psychiatric Symptoms Stated Complaint: SI Time Seen by Provider: 04/12/22 20:45 Source: patient Mode of arrival: ambulatory Limitations: no limitations History of Present Illness: 46-year-old male with history of depression he states that he has been having increasing thoughts of suicide. He states that he has a plan of hanging himself and states that he is been having more and more thoughts and is concerned he may actually do it and came here wanting to get help. He states he is previously admitted in July but nothing since then. He denies any worsening improving factors. Associated symptoms: Reports depression and suicidal ideation. He was admitted to the neuropsychiatric unit for definitive treatment of those issues. He presents today reporting that he had been running out of medication because he did not have appropriate appointments and has started having depression and suicidal thoughts and so came to the hospital. He reports having an inpatient hospitalization in [place] about 18 months ago and that he has been limited in his outpatient follow-up. He denies significant smoking past alcohol use, marijuana use but denies current cocaine, methamphetamine or other drug use. He does report a history of drug and alcohol use but has had sobriety on his side recently. He has had difficulties with methamphetamine in the past. Also periods of alcohol use. He reports he has had DUIs in the past and some other misdemeanor charges. He reports that recently medication nonadherence has led to him having difficulties with his mood. He reports he always had ADHD and behavioral problems but then when he got into his adolescence he started addiction. He reports that he has had diagnoses of schizophrenia/bipolar disorder but is not sure what really the story. We discussed the risk benefits and alternatives of initiating his previous medications at reasonable doses and then starting Lexapro 10 mg p.o. every morning and considering Abilify as a adjunct and he understood and agreed to proceed as is documented in this note. Psychiatric history: As above. Substance abuse history: As above. Family history: He does endorse having some mental health and addiction issues in the family. No known suicide attempts or completions. Developmental history: He denied any issues at /delivery and reports he learned to walk and talk and met his developmental milestones on time. He reports after he went to school he does not recall if he needed speech therapy but he did have some kind of support in school and thinks he had an IEP. His parents were together when he was born but did not split up. He reports his childhood was tough at times. He denies any major traumatic events in his life. He did not graduate from high school but he did go to the 10th grade. No additional training. He endorses being heterosexual with his longest relationship being 10 years but he does report that he has had a longer relationship with his and that they were together for a lengthy period of time and they have never gotten . He lives in apartment with his girlfriend. Never been in the . Legal history: He reports that he has been in senior care before. Medical history: He does endorse elevated blood pressure. Meds NPU Home Medications Medication Instructions Recorded Confirmed Last Taken Type buspirone 15 mg tablet 15 mg PO BID 10/13/21 04/13/22 11/18/21 History fluoxetine 60 mg tablet 60 mg PO DAILY 10/13/21 04/13/22 11/18/21 History hydroxyzine HCl 50 mg tablet 50 mg PO TID 10/13/21 04/13/22 11/18/21 History ibuprofen 800 mg tablet 800 mg PO Q6H PRN Pain 10/13/21 04/13/22 11/13/21 History lisinopril 20 mg tablet 20 mg PO DAILY 10/13/21 04/13/22 11/18/21 History prazosin 1 mg capsule 1 mg PO BEDTIME 10/13/21 04/13/22 11/18/21 History quetiapine 300 mg tablet 300 mg PO BEDTIME 10/13/21 04/13/22 11/18/21 History glecaprevir 100 mg-pibrentasvir 40 3 tab PO DAILY 12 weeks #84 tabs 11/12/21 04/13/22 11/15/21 Rx mg tablet (Mavyret) Allergies Allergy/AdvReac Type Severity Reaction Status Date / Time No Known Allergies Allergy Verified 12/11/21 16:09 PFS NPU PFSH: Surgical History No pertinent past surgical history Family History Father No problems noted. Mother Low-resistance pulmonary hypertension Social History Smoking and tobacco status: current every day smoker Quit status (tobacco): not considering quitting Second hand smoke exposure: Yes Smoking risk assessment/counseling performed?: No Alcohol intake: never Desire information about alcohol rehabilitation?: No Counseling given: No Desire information about substance/drug rehabilitation?: No Counseling given: No Adopted: No Caregiver/support person: No Lives independently: No Household members: other Housing: Other Marital status: Number of children: 2 Highest education level completed: GED or Equivalent service: No Current occupational status: unemployed Mental Status Exam MSE Comments: This is an obese white male in hospital scrubs with adequate grooming and limited eye contact. No abnormal movements except for mild psychomotor retardation. Cooperative with exam in mild distress. Speech was decreased in rate and volume. Mood described as depressed, affect congruent. Thought process organized. Thought content: Patient denied suicidal or homicidal ideations, there were no delusions reported or noted, he denied any auditory or visual hallucinations but reports he does experience that a lot. Attention and concentration were intact and memory appeared reliable but none were formally tested. He is alert and oriented x3. Insight and judgment limited impulse control limited. Vitals/I&O/Wt Last Vital Signs Temp 98.1 F 04/13/22 05:23 Pulse 106 H 04/13/22 05:23 Resp 20 H 04/13/22 05:23 BP 117/82 04/13/22 05:23 Pulse Ox 94 04/13/22 05:23 O2 Del Method 04/12/22 22:20 Weight last 48 hrs Weight 124.738 kg Data NPU 04/12/22 21:13 04/12/22 21:13 A&P Assessment and plan (1) Suicidal ideation: (2) History of schizophrenia: (3) Psychosis: Plan Is a 46-year-old white male with a long history of mental health and addiction issues who presents being somewhat not adherent to medication and hopeful that resuming medications with possible changes would be helpful given he feels Prozac and some other medications have not been as helpful as possible. 1. Continue current medication. Initiate Lexapro 10 mg p.o. every morning and consider starting Abilify. 2. Encourage individual, group and milieu therapy. 3. Continue every 15 minute checks for safety. 4. Encourage sober living treatment after discharge at the highest level of care to which she is willing to commit. 5. Evaluate for 96-hour hold. Involuntary Hold Information 96 Hour Hold: 96 Hour Involuntary Admission: Yes 96 Hour Hold Ending Date: 04/16/22 96 Hour Hold Ending Time: 20:32 Attestations NPU Medical Necessity Statement*: Inpatient hospitalization is medically necessary and the clinically appropriate intervention at this time. We will monitor/start medications and make changes as indicated. Patient will be in the hospital for over 2 midnights. Likely length of stay 3 to 5 days. Coding Level of Care Code Acute Code for g Fwd Diagnoses Suicidal ideation R45.851 History of schizophrenia Z86.59 Psychosis F29
[2022-04-13 14:00] VITALS: BP 140/85; PULSE 86; RESP 17; TEMP 36.4; O2SAT 91
[2022-04-13] MEDS: BuSPIRONE 10 mg Tablet PO ×2 (15:34→21:03)
[2022-04-13] MEDS: nicotine 4 mg lozenge MUCOUS MEM ×2 (16:56→19:42)
[2022-04-13] MEDS: naltrexone hcl 50 mg Tablet 25 MG PO (18:08)
[2022-04-13 20:16] VITALS: BP 129/89; PULSE 87; RESP 18; TEMP 36.4; O2SAT 93
[2022-04-13] MEDS: quetiapine 300 mg Tablet 150 MG PO (21:04)
[2022-04-13] MEDS: escitalopram 10 mg Tablet PO (21:04)
[2022-04-13] MEDS: prazosin 1 mg Capsule 2 MG PO (21:04)
[2022-04-14 06:00] VITALS: BP 111/75; PULSE 88; RESP 16; TEMP 36.7; O2SAT 93
[2022-04-14] MEDS: naltrexone hcl 50 mg Tablet 25 MG PO ×2 (08:28→17:32)
[2022-04-14] MEDS: escitalopram 10 mg Tablet PO (08:29)
[2022-04-14] MEDS: BuSPIRONE 10 mg Tablet PO ×3 (08:29→20:09)
[2022-04-14] MEDS: thiamine 100 mg Tablet PO (08:29)
[2022-04-14] MEDS: nicotine 4 mg lozenge MUCOUS MEM ×3 (08:29→20:10)
[2022-04-14] MEDS: lisinopril 20 mg Tablet PO (08:29)
[2022-04-14] MEDS: ARIPiprazole 10 mg Tablet 5 MG PO (08:29)
[2022-04-14] MEDS: fluoxetine 20 mg Capsule 40 MG PO (08:29)
[2022-04-14 14:00] VITALS: BP 131/81; PULSE 84; RESP 18; TEMP 36.6; O2SAT 93
--- NOTE | 2022-04-14 17:52 | W.PM.NPUPNS ---
Subjective NPU Subjective: Patient presented today reporting that he was feeling a little better. He already was thinking about discharge reporting that his significant other got some satellite TV and she is excited about him coming home. We discussed the fact that he is on a 96-hour hold and they will make sure that he gets everything out of this hospitalization that he needs. We discussed the risks, benefits and alternatives of initiating Abilify and he understood and agreed to proceed as is documented in this note. We discussed the likelihood of discharge in the next 48 hours. Mental Status Exam MSE Comments: This is an obese white male in hospital scrubs with adequate grooming and limited eye contact. No abnormal movements except for mild psychomotor retardation. Cooperative with exam in mild distress. Speech was decreased in rate and volume. Mood described as a little better, affect congruent. Thought process organized. Thought content: Patient denied suicidal or homicidal ideations, there were no delusions reported or noted, he denied any auditory or visual hallucinations but reports he does experience that a lot. Attention and concentration were intact and memory appeared reliable but none were formally tested. He is alert and oriented x3. Insight and judgment limited impulse control limited. Vitals/I&O/Wt Last Vital Signs Temp 97.9 F 04/14/22 14:00 Pulse 84 04/14/22 14:00 Resp 18 04/14/22 14:00 BP 131/81 04/14/22 14:00 Pulse Ox 93 04/14/22 14:00 O2 Del Method 04/14/22 14:00 Data NPU 04/12/22 21:13 04/12/22 21:13 A&P Assessment and plan (1) Suicidal ideation: (2) History of schizophrenia: (3) Psychosis: Plan Is a 46-year-old white male with a long history of mental health and addiction issues who presents being somewhat not adherent to medication and hopeful that resuming medications with possible changes would be helpful given he feels Prozac and some other medications have not been as helpful as possible. 1. Continue current medication. Initiated Lexapro 10 mg p.o. every morning and start Abilify 5 mg p.o. every morning 2. Encourage individual, group and milieu therapy. 3. Continue every 15 minute checks for safety. 4. Encourage sober living treatment after discharge at the highest level of care to which she is willing to commit. 5. Evaluate for 96-hour hold. Involuntary Hold Information 96 Hour Hold: 96 Hour Involuntary Admission: Yes 96 Hour Hold Ending Date: 04/16/22 96 Hour Hold Ending Time: 20:32 Attestations NPU Medical Necessity Statement*: Inpatient hospitalization is medically necessary and the clinically appropriate intervention at this time. We will monitor/start medications and make changes as indicated. Likely length of stay 2-4 days. Coding Level of Care Code Acute Code for Chg Fwd Diagnoses Suicidal ideation R45.851 History of schizophrenia Z86.59 Psychosis F29
[2022-04-14] MEDS: prazosin 1 mg Capsule 2 MG PO (20:08)
[2022-04-14] MEDS: trazodone 50 mg Tablet PO (20:08)
[2022-04-14] MEDS: quetiapine 300 mg Tablet 150 MG PO (20:09)
[2022-04-14 22:00] VITALS: BP 143/86; PULSE 83; RESP 16; TEMP 36.7; O2SAT 95
[2022-04-15 06:00] VITALS: BP 109/74; PULSE 86; RESP 16; TEMP 36.7; O2SAT 94
[2022-04-15] MEDS: lisinopril 20 mg Tablet PO (10:10)
[2022-04-15] MEDS: fluoxetine 20 mg Capsule 40 MG PO (10:10)
[2022-04-15] MEDS: escitalopram 10 mg Tablet PO (10:11)
[2022-04-15] MEDS: naltrexone hcl 50 mg Tablet 25 MG PO (10:11)
[2022-04-15] MEDS: thiamine 100 mg Tablet PO (10:11)
[2022-04-15] MEDS: BuSPIRONE 10 mg Tablet PO ×3 (10:11→21:13)
[2022-04-15] MEDS: nicotine 4 mg lozenge MUCOUS MEM ×3 (12:28→20:24)
[2022-04-15] MEDS: ARIPiprazole 10 mg Tablet 5 MG PO (12:56)
[2022-04-15 14:00] VITALS: BP 133/81; PULSE 91; RESP 20; TEMP 36.6; O2SAT 94
--- NOTE | 2022-04-15 16:28 | P.NPUPN_ITS ---
Subjective NPU Subjective: Patient presented today reporting that he feels like he is doing better on the medication overall. He denied any side effects or problems. He reports that he is been visited by his significant other which is helped and he is really hopeful that he could discharge sooner rather than later. We discussed when his 96-hour hold ended and the likelihood of discharge tomorrow. Mental Status Exam MSE Comments: This is an obese white male in hospital scrubs with adequate grooming and limited eye contact. No abnormal movements except for mild psychomotor retardation. Cooperative with exam in mild distress. Speech was decreased in rate and volume. Mood described as better, affect congruent. Th ought process organized. Thought content: Patient denied suicidal or homicidal ideations, there were no delusions reported or noted, he denied any auditory or visual hallucinations but reports he does experience that a lot. Attention and concentration were intact and memory appeared reliable but none were formally tested. He is alert and oriented x3. Insight and judgment limited proving impulse control limited. Vitals/I&O/Wt Last Vital Signs Temp 97.9 F 04/15/22 14:00 Pulse 91 04/15/22 14:00 Resp 20 H 04/15/22 14:00 BP 133/81 04/15/22 14:00 Pulse Ox 94 04/15/22 14:00 O2 Del Method 04/15/22 06:00 Data NPU 04/12/22 21:13 04/12/22 21:13 A&P Assessment and plan (1) Suicidal ideation: (2) History of schizophrenia: (3) Psychosis: Plan Is a 46-year-old white male with a long history of mental health and addiction issues who presents being somewhat not adherent to medication and hopeful that resuming medications with possible changes would be helpful given he feels Prozac and some other medications have not been as helpful as possible. 1. Continue current medication. Initiated Lexapro 10 mg p.o. every morning and started Abilify 5 mg p.o. every morning 2. Encourage individual, group and milieu therapy. 3. Continue every 15 minute checks for safety. 4. Encourage sober living treatment after discharge at the highest level of care to which she is willing to commit. 5. Evaluate for 96-hour hold. Involuntary Hold Information 96 Hour Hold: 96 Hour Involuntary Admission: Yes 96 Hour Hold Ending Date: 04/16/22 96 Hour Hold Ending Time: 20:32 Attestations NPU Medical Necessity Statement*: Inpatient hospitalization is medically necessary and the clinically appropriate intervention at this time. We will monitor/start medications and make changes as indicated. Likely length of stay 1-3 days. Coding Level of Care Code Acute Code for Chg Fwd Diagnoses Suicidal ideation R45.851 History of schizophrenia Z86.59 Psychosis F29
[2022-04-15] MEDS: prazosin 1 mg Capsule 2 MG PO (21:13)
[2022-04-15] MEDS: quetiapine 300 mg Tablet 150 MG PO (21:13)
[2022-04-15] MEDS: trazodone 50 mg Tablet PO (21:52)
[2022-04-15 22:00] VITALS: BP 131/90; PULSE 100; RESP 17; O2SAT 92
[2022-04-16 06:00] VITALS: BP 125/79; PULSE 76; RESP 16; TEMP 36.8; O2SAT 95
[2022-04-16] MEDS: ARIPiprazole 10 mg Tablet 5 MG PO (11:33)
[2022-04-16] MEDS: fluoxetine 20 mg Capsule 40 MG PO (11:34)
[2022-04-16] MEDS: BuSPIRONE 10 mg Tablet PO ×2 (11:35→15:09)
[2022-04-16] MEDS: lisinopril 20 mg Tablet PO (11:35)
[2022-04-16] MEDS: escitalopram 10 mg Tablet PO (11:35)
[2022-04-16] MEDS: thiamine 100 mg Tablet PO (11:35)
[2022-04-16] MEDS: nicotine 4 mg lozenge MUCOUS MEM (11:40)
--- NOTE | 2022-04-16 12:41 | W.PM.NPUDCS ---
Diagnoses at Discharge Discharge Diagnosis (1) Suicidal ideation: Status: Acute (2) History of schizophrenia: Status: Acute (3) Psychosis: Status: Acute Reason for Visit Reason for Visit: SI Brief History: History of Present Illness Jaxon Coleman is a 46 year old male who presented to the emergency department with the following report: Chief Complaint: Psychiatric Symptoms Stated Complaint: SI Time Seen by Provider: 04/12/22 20:45 Source: patient Mode of arrival: ambulatory Limitations: no limitations History of Present Illness: 46-year-old male with history of depression he states that he has been having increasing thoughts of suicide. He states that he has a plan of hanging himself and states that he is been having more and more thoughts and is concerned he may actually do it and came here wanting to get help. He states he is previously admitted in July but nothing since then. He denies any worsening improving factors. Associated symptoms: Reports depression and suicidal ideation. He was admitted to the neuropsychiatric unit for definitive treatment of those issues. He presents today reporting that he had been running out of medication because he did not have appropriate appointments and has started having depression and suicidal thoughts and so came to the hospital. He reports having an inpatient hospitalization in the [place] area about 18 months ago and that he has been limited in his outpatient follow-up. He denies significant smoking past alcohol use, marijuana use but denies current cocaine, methamphetamine or other drug use. He does report a history of drug and alcohol use but has had sobriety on his side recently. He has had difficulties with methamphetamine in the past. Also periods of alcohol use. He reports he has had DUIs in the past and some other misdemeanor charges. He reports that recently medication nonadherence has led to him having difficulties with his mood. He reports he always had ADHD and behavioral problems but then when he got into his adolescence he started addiction. He reports that he has had diagnoses of schizophrenia/bipolar disorder but is not sure what really the story. We discussed the risk benefits and alternatives of initiating his previous medications at reasonable doses and then starting Lexapro 10 mg p.o. every morning and considering Abilify as a adjunct and he understood and agreed to proceed as is documented in this note. Psychiatric history: As above. Substance abuse history: As above. Family history: He does endorse having some mental health and addiction issues in the family. No known suicide attempts or completions. Developmental history: He denied any issues at /delivery and reports he learned to walk and talk and met his developmental milestones on time. He reports after he went to school he does not recall if he needed speech therapy but he did have some kind of support in school and thinks he had an IEP. His parents were together when he was born but did not split up. He reports his childhood was tough at times. He denies any major traumatic events in his life. He did not graduate from high school but he did go to the 10th grade. No additional training. He endorses being heterosexual with his longest relationship being 10 years but he does report that he has had a longer relationship with his and that they were together for a lengthy period of time and they have never gotten . He lives in apartment with his girlfriend. Never been in the . Legal history: He reports that he has been in senior living before. Medical history: He does endorse elevated blood pressure. Hospital Course Hospital Course He quickly acclimated to the individual, group and milieu therapies provided. He presented not having success with some medications. Initiated Lexapro and Abilify at both at 10 milligrams and began decreasing Seroquel and Prozac. He had significant improvement during the stay and worked with the social work team to get connected with outpatient resources. He was able to contract for safety, outside of the hospital prior to discharge. During the hospitalization he had routine laboratory studies which were within normal limits except for few outliers.? Additionally had a general medical evaluation which was also within normal limits and revealed no new acute processes. ?? Discharge Summary At the time of discharge, he endorsed being absent lethality and psychosis.? His mood and anxiety were well managed.? He endorsed a plan to avoid any drugs of abuse and follow-up with services outside of the hospital per the treatment team recommendations.? He was evaluated and deemed absent credible lethality and had received the maximum benefit from an inpatient hospitalization, so he was discharged. Involuntary Hold Information 96 Hour Hold: 96 Hour Involuntary Admission: Yes 96 Hour Hold Ending Date: 04/16/22 96 Hour Hold Ending Time: 20:32 Mental Status Exam MSE Comments: This is an obese white male in hospital scrubs with adequate grooming and limited eye contact. No abnormal movements except for mild psychomotor retardation. Cooperative with exam in no acute distress. Speech was decreased in rate and volume. Mood described as better, affect congruent. Thought process organized. Thought content: Patient denied suicidal or homicidal ideations, there were no delusions reported or noted, he denied any auditory or visual hallucinations but reports he does experience that a lot. Attention and concentration were intact and memory appeared reliable but none were formally tested. He is alert and oriented x3. Insight and judgment limited but improving impulse control limited. Discharge Data Studies Completed and Pending: Laboratory Results WBC 14.4 10^3/uL (4.0 -10.0) H 04/12/22 21:13 RBC 5.76 10^6/uL (4.1 -5.3) H 04/12/22 21:13 Hgb 16.5 g/dL (11.7-1 6.6) 04/12/22 21:13 Hct 50.9 % (42.0-52.0 ) 04/12/22 21:13 MCV 88.4 fl (80-94) 04/12/22 21:13 MCH 28.6 pg (28.0-34. 0) 04/12/22 21:13 MCHC 32.4 g/dL (30.0-3 6.0) 04/12/22 21:13 RDW 15.3 % (12.1-15.1 ) H 04/12/22 21:13 Plt Count 274 10^3/cmm (130 -400) 04/12/22 21:13 MPV 10.3 fL (7.4-10.4 ) 04/12/22 21:13 Neut % (Auto) 52.6 % 04/12/22 21:13 Lymph % (Auto) 36.3 % 04/12/22 21:13 [place] % (Auto) 7.6 % 04/12/22 21:13 Eos % (Auto) 1.5 % 04/12/22 21:13 Baso % (Auto) 0.8 % 04/12/22 21:13 Neut # (Auto) 7.59 10^3/uL (1.8 -7.7) 04/12/22 21:13 Lymph # (Auto) 5.2 10^3/uL (0.8- 4.8) H 04/12/22 21:13 [place] # (Auto) 1.1 10^3/uL (0.2- 0.9) H 04/12/22 21:13 Eos # (Auto) 0.2 10^3/uL (0.0- 0.8) 04/12/22 21:13 Baso # (Auto) 0.1 10^3/uL (0.0- 0.1) 04/12/22 21:13 Nucleated RBC % (a uto) 0 % 04/12/22 21:13 Nucleated RBCs # 0.0 /100WBC 04/12/22 21:13 Sodium 139 mmol/L (136-1 45) 04/12/22 21:13 Potassium 4.3 mmol/L (3.5-5 .1) 04/12/22 21:13 Chloride 101 mmol/L (98-10 7) 04/12/22 21:13 Carbon Dioxide 27 mmol/L (22-29) 04/12/22 21:13 Anion Gap 15.3 (5-19) 04/12/22 21:13 BUN 12 mg/dL (6-20) 04/12/22 21:13 Creatinine 0.8 mg/dL (0.7-1. 2) 04/12/22 21:13 GFR Calculation 105.0 mL/min (90- 130) 04/12/22 21:13 Glucose 112 mg/dL (65-115 ) 04/12/22 21:13 Calculated Osmolal ity 289 mOsm/kg (285- 295) 04/12/22 21:13 Calcium 9.6 mg/dL (8.5-10 .5) 04/12/22 21:13 Total Bilirubin 0.6 mg/dL (0.15-1 .2) 04/12/22 21:13 AST 41 U/L (0-40) H 04/12/22 21:13 ALT 80 U/L (0-41) H 04/12/22 21:13 Alkaline Phosphata se 103 U/L (40-130) 04/12/22 21:13 Total Protein 8.0 g/dL (6.6-8.7 ) 04/12/22 21:13 Albumin 4.1 g/dL (3.5-5.2 ) 04/12/22 21:13 Globulin 3.9 g/dL (1.3-4.6 ) 04/12/22 21:13 Salicylates < 0.3 mg/dL (3-10 ) L 04/12/22 21:13 Urine Opiates Scre en Negative ng/mL (N egative) 04/12/22 20:49 Acetaminophen < 5.0 ug/mL (10-3 0) L 04/12/22 21:13 Ur Barbiturates Sc reen Negative ng/mL (N egative) 04/12/22 20:49 Ur Phencyclidine S crn Negative ng/mL (N egative) 04/12/22 20:49 Ur Amphetamines Sc reen Negative ng/mL (N egative) 04/12/22 20:49 U Benzodiazepines Scrn Negative ng/mL (N egative) 04/12/22 20:49 Urine Cocaine Scre en Negative ng/mL (N egative) 04/12/22 20:49 U Marijuana (THC) Screen Positive ng/mL (N egative) H 04/12/22 20:49 Ethyl Alcohol < 10 mg/dL (0-10) 04/12/22 21:13 Vitals: Last Vital Signs Temp 98.2 F 04/16/22 06:00 Pulse 76 04/16/22 06:00 Resp 16 04/16/22 06:00 BP 125/79 04/16/22 06:00 Pulse Ox 95 04/16/22 06:00 O2 Del Method 04/16/22 06:00 Discharge Plan Discharge Patient Disposition: Home Condition: Stable Prescriptions: New buspirone 10 mg Tablet 10 mg PO TID 30 Days Qty: 90 1RF prazosin 1 mg Capsule 2 mg PO BEDTIME 30 Days Qty: 60 1RF fluoxetine 20 mg Capsule 40 mg PO DAILY 14 Days Qty: 18 0RF Rx Instructions: 2 capsules daily for 4 days, then 1 daily for 10 days then discontinue quetiapine 300 mg Tablet 150 mg PO BEDTIME 30 Days Qty: 15 1RF trazodone 50 mg Tablet 50 mg PO BEDTIME PRN (Reason: Sleep) 30 Days Qty: 30 1RF escitalopram oxalate 10 mg Tablet 10 mg PO DAILY 30 Days Qty: 30 1RF aripiprazole 10 mg Tablet 10 mg PO DAILY 30 Days Qty: 30 1RF Vitamin B-1 (mononitrate) 100 mg Tablet 100 mg PO DAILY 30 Days Qty: 30 1RF gabapentin 100 mg capsule 100 mg PO BID 30 Days Qty: 60 1RF Continued hydroxyzine HCl 50 mg tablet 50 mg PO TID ibuprofen 800 mg tablet 800 mg PO Q6H PRN (Reason: Pain) Hold Instructions: Resume on 11/21/21. lisinopril 20 mg tablet 20 mg PO DAILY Mavyret 100-40 mg tablet 3 tab PO DAILY 84 Days Qty: 84 1RF Rx Instructions: must administer with a meal/food Discontinued quetiapine 300 mg tablet 300 mg PO BEDTIME buspirone 15 mg tablet 15 mg PO BID fluoxetine 60 mg tablet 60 mg PO DAILY prazosin 1 mg capsule 1 mg PO BEDTIME Discharge Orders: Discharge Order (Routine); Ordered 04/16/22 Ordered By: Myke Hardwick Referrals: [facility] [Outside] - 04/26/22 2:30 pm (Initial appointment scheduled for 04/26/22 @ 2:30 pm.) Discharge Diet: Regular Discharge Activity: Resume usual activity Patient Instructions: Escitalopram (By mouth) (Lexapro), Aripiprazole (By mouth), Psychotic Disorder (DC), Opioid Safety Discharge Attestations NPU Time Spent in Discharge Care*: less than 30 min Specific Discharge Activities: Specific discharge activities: educating patient, discussing with telephonic case manager/social workers/dc planners, documenting/other paperwork and evaluating patient/reviewing data Coding Level of Care Code Acute Chg FW DC note Diagnoses Suicidal ideation R45.851 History of schizophrenia Z86.59 Psychosis F29
[2022-04-16] MEDS: pneumococcal (23 valent) SDV 0.5 mL IM (13:56)
[2022-04-16 14:22] VITALS: BP 125/79; PULSE 76; RESP 16; TEMP 36.8; O2SAT 95
== END 2022-04-16 15:29 | disposition home or self-care (01) | DRG 885 ==
LOC: ER 22:04 → NP 04-13 06:11
PROVIDERS: Admitting Provider Psychiatry & Neurology Psychiatry; Emergency Provider Emergency Medicine; Visit Provider Psychiatry & Neurology Psychiatry
DX: F25.0 Schizoaffective disorder, bipolar type (principal); R45.851 Suicidal ideations; F17.200 Nicotine dependence, unspecified, uncomplicated; I10 Essential (primary) hypertension; F90.9 Attention-deficit hyperactivity disorder, unspecified type; Z81.8 Family history of other mental and behavioral disorders
CPT/HCPCS: 80053; 80306; 80307; 85025; 90471; 90686; 90732; 97165; 99238; 99285

== ENCOUNTER → 2022-06-14 15:32 | Outpatient (BNVA) | payer OTHER, SELFPAY | PROVIDERS: Visit Provider Nurse Practitioner Psychiatric/Mental Health | DX: Z03.89 Encounter for observation for other suspected diseases and conditions ruled out (principal) | CPT/HCPCS: 80053; 80306 ==

== ENCOUNTER → 2022-06-29 09:08 | Outpatient (BNVA) | payer MEDICAID, SELFPAY | PROVIDERS: PCP Family Medicine; Visit Provider Family Medicine | DX: B19.20 Unspecified viral hepatitis C without hepatic coma (principal); Z68.38 Body mass index [BMI] 38.0-38.9, adult; Z72.51 High risk heterosexual behavior | CPT/HCPCS: 80053; 80061; 86705; 86706; 86709; 86803; 87340; 87522; 87806 ==

== ENCOUNTER 2022-07-05 07:40 | Outpatient (CLI) | payer MEDICAID, SELFPAY ==
--- NOTE | 2022-07-05 07:45 | US_ITS ---
WS: [id number] RIGHT UPPER QUADRANT ULTRASOUND HISTORY: hep C COMPARISON: 08/15/2021 CT. Liver: 18.6 cm in length. Mildly enlarged liver. Nodular surface probably due to cirrhosis. No mass o r bile duct dilatation. Portal Vein: Not imaged. Gallbladder: Normally distended gallbladder with no stones or wall thickening. CBD: 0.4 cm Pancreas: Poorly visualized. Heterogeneous body of the pancreas. Pancreatic body appears prominent. Right kidney: 11.4 cm in length. Normal size and echogenicity. No hydronephrosis or mass. Aorta and IVC: Unremarkable abdominal aorta and IVC. No ascites. US/US liver [id number] IMPRESSION: 1. Mild hepatic enlargement with no mass. Changes of early cirrhosis. 2. Portal vein is not visualized. 3. Abnormal body of the pancreas. May be due to prior episodes of pancreatitis . Recommend CT follow-up pancreatic mass protocol (arterial and portal venous p hase imaging). Oral contrast should also be given. 4. Negative gallbladder.
== END 2022-07-05 07:41 | disposition home or self-care (01) ==
LOC: RAD 07:43
PROVIDERS: PCP Family Medicine; Visit Provider Family Medicine
DX: B19.20 Unspecified viral hepatitis C without hepatic coma (principal); R16.0 Hepatomegaly, not elsewhere classified; K74.60 Unspecified cirrhosis of liver; R93.3 Abnormal findings on diagnostic imaging of other parts of digestive tract
CPT/HCPCS: 76705; 80053; 80061; 86705; 86706; 86709; 86803; 87340; 87522; 87806

== ENCOUNTER 2022-07-14 12:03 | Outpatient (CLI) | payer MEDICAID, SELFPAY ==
--- NOTE | 2022-07-14 13:30 | CTR_ITS ---
PROCEDURE INFORMATION: Exam: CT Abdomen And Pelvis Without Contrast Exam date and time: 07/14/2022 1:33 PM Age: 46 years old Clinical indication: Abnormal findings; Abnormal radiologic finding of the abdomen; Radiologic exam and body structure: Pancreatic head enlargement, ultrasound; Additional info: Pancreatic head enlargement, pancreatic mass protocol TECHNIQUE: Imaging protocol: Computed tomography of the abdomen and pelvis without contrast. Radiation optimization: All CT scans at this facility use at least one of these dose optimization techniques: automated exposure control; mA and/or kV adjustment per patient size (includes targeted exams where dose is matched to clinical indication); or iterative reconstruction. REPORTING DATA: Count of CT and Cardiac NM exams in prior 12 months: This patient has received 2 known CTs and 0 known cardiac nuclear medicine studies in the 12 months prior to the current study. COMPARISON: CT abdomen pelvis con [id number] 08/15/2021 7:13 PM RADIATION DOSE METRICS: Total DLP (mGy-cm): 1153.83 FINDINGS: Lungs: Small circumscribed subpleural nodule left lung base, stable consistent with benign etiology. Lung bases are otherwise clear. Diaphragm: Small-moderate size hiatal hernia Liver: Mild fatty infiltration throughout the liver. No masses or enlargement detected. Gallbladder and bile ducts: Normal. No calcified stones. No ductal dilation. Pancreas: Pancreas is unchanged and unremarkable in appearance. No pancreatic mass detected. Main pancreatic duct is not dilated. Peripancreatic fat planes are preserved. Unremarkable. Main pancreatic duct is not significantly dilated. Spleen: Normal. No splenomegaly. Adrenal glands: Normal. No mass. Kidneys and ureters: Normal. No hydronephrosis. Stomach and bowel: Segment of terminal ileum that appears somewhat narrowed with mild bowel wall thickening with submucosal fat deposition that is likely chronic and may represent sequelae of chronic terminal ileitis/Crohn's disease. This should be correlated with history. Appendix: No evidence of appendicitis. Intraperitoneal space: Unremarkable. No free air. No significant fluid collection. Vasculature: Scattered atherosclerotic changes of the abdominal aorta and iliac vessels. No aortic aneurysm. Lymph nodes: Unremarkable. No enlarged lymph nodes. Urinary bladder: Unremarkable as visualized. Reproductive: Unremarkable as visualized. Bones/joints: Unremarkable. No acute fracture. Soft tissues: Moderate-sized bilateral fat containing inguinal hernias, stable. CT/CT abdomen pelvis con [id number] IMPRESSION: 1. No acute findings within the abdomen or pelvis. 2. Normal CT examination of the pancreas. 3. Chronic small bowel wall changes involving terminal ileum as discussed above. 4. Additional chronic findings as above. Is assessment the with stone removed the
[2022-07-14] MEDS: iohexol 350 mg/mL 500 mL Btl (per mL) PO (13:39)
== END 2022-07-14 12:04 | disposition home or self-care (01) ==
LOC: RAD 12:06
PROVIDERS: PCP Family Medicine; Visit Provider Family Medicine
DX: B19.20 Unspecified viral hepatitis C without hepatic coma (principal); Q45.3 Other congenital malformations of pancreas and pancreatic duct
CPT/HCPCS: 74176; Q9967

== ENCOUNTER → 2022-07-19 10:45 | Outpatient (BNVA) | payer MEDICAID, SELFPAY | PROVIDERS: PCP Family Medicine; Visit Provider Family Medicine | DX: B19.20 Unspecified viral hepatitis C without hepatic coma (principal) | CPT/HCPCS: 87902 ==

== ENCOUNTER 2023-12-09 19:50 | Inpatient (IN) | payer OTHER, MEDICAID, SELFPAY ==
[2023-12-09 19:56] VITALS: BP 142/98; PULSE 79; RESP 18; TEMP 36.4; O2SAT 99; BMI 28.2
--- NOTE | 2023-12-09 20:20 | PC.NURSE ---
Spoke with poison control at 19:45. Recommendation of symptomatic support and observation for 3 to 4 hours after ingestion. Pt. reports ingestion of about 30 tablets at 19:00. Other recommendation of our psych symptoms medical clearance protocol.
[2023-12-09 21:02] LABS: Basophils # 0.1 10^3/uL (0.0-0.1); Basophils % 0.6 %; Eosinophils # 0.3 10^3/uL (0.0-0.8); Eosinophils % 2.3 %; Hematocrit 46.3 % (37-53); Lymphocytes # 4.9 10^3/uL (0.8-4.8); Lymphocytes % 39.1 %; Mean Corpuscular HGB Conc 32.4 g/dL (30-55); Mean Corpuscular Hemoglobin 28.8 pg (27-33); Mean Platelet Volume 10.4 fL (7.4-10.4); Monocytes # 0.9 10^3/uL (0.2-0.9); Neutrophils # 6.26 10^3/uL (1.8-7.7); Neutrophils % 50.5 %; Nucleated Red Blood Cells % 0 %; Platelet Count 225 10^3/cmm (157-399); Red Cell Distribution Width 13.3 % (12.1-15.1); White Blood Count 12.39 10^3/uL (3.29-11.43)
--- NOTE | 2023-12-09 21:09 | ED.C_ITS ---
HPI - Psych 2 General: Chief Complaint: Psychiatric Symptoms Stated Complaint: SI Time Seen by Provider: 12/09/23 19:53 History of Present Illness: 48-year-old male presents ER department chief complaint of suicidal thoughts and ideations patient reports just prior to arrival but a half an hour prior to arrival around 8:00 patient took a significant dose of diphenhydramine he reported take about a half a bottle approximately 45 pills patient reports this with the intent of ending his life prior to him hanging himself patient reports that he has a history of drug and alcohol issues he does endorse a prior history of mental health issues that he has been off his medications patient presents to the emergency department for further assessment and management. Patient does also endorse a couple fireball shots earlier today as well as using methamphetamine this morning patient denies any other associated symptoms. He reports he feels quite sedated at this time Associated symptoms: Reports depression and suicidal ideation Related Data Previous Rx's Medication Instructions Recorded aripiprazole 5 mg tablet 5 mg PO .q am #30 tabs 07/15/22 buspirone 15 mg tablet 15 mg PO TID #90 tabs 07/15/22 escitalopram oxalate 10 mg tablet 10 mg PO DAILY 30 days #30 tabs 07/15/22 gabapentin 100 mg capsule See Rx Instructions PO .COMPLEX 07/15/22 #90 caps glecaprevir 100 mg-pibrentasvir 40 3 tab PO DAILY 12 weeks #252 tabs 07/30/22 mg tablet (Mavyret) quetiapine 100 mg tablet See Rx Instructions PO .qhs #45 08/10/22 tabs Allergies Allergy/AdvReac Type Severity Reaction Status Date / Time No Known Allergies Allergy Verified 07/15/22 13:02 Review of Systems 2 General: Reports: 10 or more systems reviewed and unremarkable except in HPI and below Const: Reports: fatigue and malaise; Denies: fever(s) or chills Eyes: Denies: change in vision or blurry vision Card: Denies: chest pain or palpitations Resp: Denies: dyspnea or productive cough GI: Denies: abdominal pain, nausea or vomiting : Denies: flank pain Musc: Denies: extremity pain or extremity swelling Skin/Breast: Denies: rash or pruritus Neuro: Denies: headache(s) Psych: Reports: anxiety, depression, mood swings, hopelessness, loss of interest and suicidal ideation [place]/Lymph: Denies: easy bleeding All/Imm: Denies: urticaria, throat swelling or facial swelling PFSH ED 2 PFSH: Medical History Tobacco use disorder, moderate, dependence Amphetamine use disorder, moderate, in sustained remission Anxiety Insomnia Major depressive disorder, recurrent severe without psychotic features Surgical History No pertinent past surgical history Family History Father No problems noted. Mother Low-resistance pulmonary hypertension Other Hyperlipidemia Hypertension Denies family history of Diabetes CAD (coronary artery disease) Clotting disorder Dementia Psychiatric illness Chronic kidney disease (CKD) Anesthesia complication Bleeding disorder Lung disease Cancer Stroke Social History Smoking and tobacco/nicotine status: current every day tobacco/nicotine user cigarettes Packs smoked per day: 0.5 Quit status (tobacco/nicotine): not considering quitting Second hand smoke exposure: Yes Alcohol intake: never Substance/Drug Use: former Date of last use: meth use, last use 10/05 Adopted: No Caregiver/support person: No Lives independently: No Household members: other Housing: Other Marital status: Number of children: 2 Highest education level completed: GED or Equivalent service: No Current occupational status: unemployed Special yesi needs: No Agree to transfusion: Yes Physical Exam 2 Const: COMMON NORMALS: no acute distress (Patient appears somewhat fatigued/sedated no focal neurodeficit appreciated), patient oriented x3 and healthy appearing HENMT: COMMON NORMALS: normocephalic and atraumatic HEAD & SCALP: n ormocephalic and atraumatic Eye: COMMON NORMALS: Equal, round and reactive pupils present and EOMs intact bilaterally PUPIL: Yes Equal, round and reactive pupils present Neck/C-Spine: COMMON NORMALS: full ROM, supple and no JVD Lymph: LYMPHATIC: no lymphadenopathy noted Chest: COMMONS NORMALS: normal inspection of the chest and normal palpation of entire chest wall Resp: COMMON NORMALS: normal respiratory effort, No retractions and clear to auscultation bilaterally EFFORT & INSPECTION: Yes able to speak in complete sentences and Yes symmetric chest movement AUSCULTATION: clear to auscultation bilaterally Cardio: COMMON NORMALS: no JVD, regular rate and regular rhythm RATE: r egular rate RHYTHM: regular rhythm GI: COMMON NORMALS: Normal to inspection, nondistended, normoactive bowel sounds present, Soft to palpation and non-tender INSPECTION: Yes normal to inspection PALPATION: Yes Soft to palpation : COMMON NORMALS: Yes no CVA tenderness BLADDER/KIDNEY EXAM: Yes no CVA tenderness Back/Pelvis: COMMON NORMALS: no CVA tenderness Extremity: COMMON NORMALS: normal to inspection and full ROM Neuro: COMMON NORMALS: patient oriented x3, CN's II-XII intact bilaterally, moves all extremities and no focal motor deficits Psych: COMMON NORMALS: mental status grossly normal, Normal thought process present, cooperative and normal affect THOUGHT PROCESS: Normal thought process present Skin: COMMON NORMALS: no rashes or lesions noted GENERAL SKIN EXAM: no rashes or lesions noted Course 2 Vital Signs: Vital signs: Vital Signs Temperature 97.5 F L 12/09/23 19:56 Pulse Rate 71 12/09/23 22:03 Respiratory Rate 16 12/09/23 22:03 Blood Pressure 134/98 12/09/23 22:03 Pulse Oximetry 96 12/09/23 22:03 MDM - Psych Medical Decision Making Due to patient's symptoms and condition he will require to go through the medical screening examination for psychiatric placement reported control was contacted which reports patient will eat a 6-hour monitoring mental monitoring. To confirm no QTc prolongation due to the the extent of the medications that he had taken will continue to follow affidavits will be filled out by myself and nursing staff. Anticipate need to admit the patient to the ICU for constant monitoring in which patient to be admitted and evaluated the nPU for further evaluation management upon being medically cleared. Patient's case with Dr. 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 to accept the patient tonight which will know more at 0500 to see about staff availability the the patient will need additional medical clearance for the next 4 hours anyways because of the Benadryl that he had taken which reported control recommends constant monitoring for QTc prolongation this patient was signed out to my colleague Dr. Sauceda at 2300 anticipate admission to the neuropsychiatric unit upon staff availability. Lab Data 12/09/23 20:55 12/09/23 20:55 Laboratory Results WBC 12.39 10^3/uL (3.29-11.43) H 12/09/23 20:55 RBC 5.20 10^6/uL (3.85-5.65) 12/09/23 20:55 Hgb 15.00 g/dL (11.27-16.99) 12/09/23 20:55 Hct 46.3 % (37-53) 12/09/23 20:55 MCV 89.0 fl (82-101) 12/09/23 20:55 MCH 28.8 pg (27-33) 12/09/23 20:55 MCHC 32.4 g/dL (30-55) 12/09/23 20:55 RDW 13.3 % (12.1-15.1) 12/09/23 20:55 Plt Count 225 10^3/cmm (157-399) 12/09/23 20:55 MPV 10.4 fL (7.4-10.4) 12/09/23 20:55 Neut % (Auto) 50.5 % 12/09/23 20:55 Lymph % (Auto) 39.1 % 12/09/23 20:55 [place] % (Auto) 7.0 % 12/09/23 20:55 Eos % (Auto) 2.3 % 12/09/23 20:55 Baso % (Auto) 0.6 % 12/09/23 20:55 Neut # (Auto) 6.26 10^3/uL (1.8-7.7) 12/09/23 20:55 Lymph # (Auto) 4.9 10^3/uL (0.8-4.8) H 12/09/23 20:55 [place] # (Auto) 0.9 10^3/uL (0.2-0.9) 12/09/23 20:55 Eos # (Auto) 0.3 10^3/uL (0.0-0.8) 12/09/23 20:55 Baso # (Auto) 0.1 10^3/uL (0.0-0.1) 12/09/23 20:55 Nucleated RBC % (auto) 0 % 12/09/23 20:55 Nucleated RBCs # 0.0 /100WBC 12/09/23 20:55 Sodium 140 mmol/L (136-145) 12/09/23 20:55 Potassium 3.9 mmol/L (3.5-5.1) 12/09/23 20:55 Chloride 102 mmol/L (98-107) 12/09/23 20:55 Carbon Dioxide 28 mmol/L (22-29) 12/09/23 20:55 Anion Gap 13.9 (5-19) 12/09/23 20:55 BUN 13 mg/dL (6-20) 12/09/23 20:55 Creatinine 0.8 mg/dL (0.7-1.2) 12/09/23 20:55 GFR Calculation 104.1 mL/min (90-130) 12/09/23 20:55 Glucose 89 mg/dL (65-115) 12/09/23 20:55 Calculated Osmolality 290 mOsm/kg (285-295) 12/09/23 20:55 Calcium 9.2 mg/dL (8.5-10.5) 12/09/23 20:55 Total Bilirubin 0.6 mg/dL (0.15-1.2) 12/09/23 20:55 AST 27 U/L (0-40) 12/09/23 20:55 ALT 60 U/L (0-41) H 12/09/23 20:55 Alkaline Phosphatase 86 U/L (40-130) 12/09/23 20:55 Total Protein 7.2 g/dL (6.6-8.7) 12/09/23 20:55 Albumin 4.2 g/dL (3.5-5.2) 12/09/23 20:55 Globulin 3.0 g/dL (1.3-4.6) 12/09/23 20:55 Urine Color Yellow (Yellow) 12/09/23 20:09 Urine Appearance Clear (CLEAR) 12/09/23 20:09 Urine pH 5.5 (5-7) 12/09/23 20: Ur Specific [place] 1.018 (1.005-1.030) 12/09/23 20:09 Urine Protein Negative (Negative) 12/09/23 20:09 Urine Glucose (UA) Negative (Normal) 12/09/23 20: Urine Ketones Negative (Negative) 12/09/23 20: Urine Blood Negative (Negative) 12/09/23 20:09 Urine Nitrate Negative (Negative) 12/09/23 20:09 Urine Bilirubin Negative (Negative) 12/09/23 20:09 Urine Urobilinogen 1.0 mg/dL (Negative) 12/09/23 20:09 Ur Leukocyte Esterase Negative (Negative) 12/09/23 20:09 Urine RBC 0-2 /hpf (0-2) 12/09/23 20:09 Urine WBC 0-5 /hpf (0-5) 12/09/23 20:09 Ur Squamous Epith Cells 0-5 /hpf (0-5) 12/09/23 20:09 Amorphous Sediment Not Reportable 12/09/23 20:09 Urine Bacteria None seen /hpf (NONE) 12/09/23 20:09 Hyaline Casts 0.40 /lpf 12/09/23 20:09 Salicylates < 0.3 mg/dL (3-10) L 12/09/23 20:55 Urine Opiates Screen Negative ng/mL (Negative) 12/09/23 20:09 Acetaminophen < 5.0 ug/mL (10-30) L 12/09/23 20:55 Ur Barbiturates Screen Negative ng/mL (Negative) 12/09/23 20:09 Ur Phencyclidine Scrn Negative ng/mL (Negative) 12/09/23 20:09 Ur Amphetamines Screen Positive ng/mL (Negative) H 12/09/23 20:09 U Benzodiazepines Scrn Negative ng/mL (Negative) 12/09/23 20:09 Urine Cocaine Screen Negative ng/mL (Negative) 12/09/23 20:09 U Marijuana (THC) Screen Positive ng/mL (Negative) H 12/09/23 20:09 SARS-CoV-2 Ag (Rapid) Negative (Negative) 12/09/23 21:35 XR interpretation done by ED provider, pending radiology final review Discharge Plan Discharge Patient Disposition: Admitted As Inpatient Clinical Impression: Suicide attempt, Intentional overdose of drug in tablet form Condition: Stable Coding Level of Care Code ED Internet Specialist for Svitlana Marie
[2023-12-09 21:22] LABS: Acetaminophen < 5.0 ug/mL (10-30); Alanine Aminotransferase 60 U/L (0-41); Albumin Level 4.2 g/dL (3.5-5.2); Alkaline Phosphatase 86 U/L (40-130); Anion Gap 13.9 (5-19); Aspartate Amino Transferase 27 U/L (0-40); Blood Urea Nitrogen 13 mg/dL (6-20); Calcium 9.2 mg/dL (8.5-10.5); Carbon Dioxide 28 mmol/L (22-29); Chloride 102 mmol/L (98-107); Creatinine Clr Calc Pharmacy 145.6282; Glomerular Filtration Rate 104.1 mL/min (90-130); Glucose 89 mg/dL (65-115); Osmolality Calculated 290 mOsm/kg (285-295); Potassium 3.9 mmol/L (3.5-5.1); Salicylate < 0.3 mg/dL (3-10); Sodium 140 mmol/L (136-145); Total Bilirubin 0.6 mg/dL (0.15-1.2); Total Protein 7.2 g/dL (6.6-8.7)
--- NOTE | 2023-12-09 21:34 | ECG_ITS ---
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 Measurements Intervals [place] Rate: 71 P: 48 WV: 173 QRS: -41 QRSD: 100 T: 53 QT: 395 QTc: 432 Interpretive Statements SINUS RHYTHM LEFT AXIS DEVIATION [QRS AXIS < -30] INCOMPLETE RIGHT BUNDLE BRANCH BLOCK [90+ ms QRS DURATION, TERMINAL R IN V1/V2, 40+ ms S IN I/aVL/V4/V5/V6] Compared to ECG 08/15/2021 21:01:57 Incomplete right bundle-branch block now present Electronically Signed On 12-12-2023 00:13:01 CDT by Mckenzie Rubio M.D. [email or web address]
[2023-12-09 21:37] LABS: Bilirubin Urine Negative (Negative); Blood Urine Negative (Negative); Glucose Urine UA Negative (Normal); Ketones Urine Negative (Negative); Leukocyte Esterase Urine Negative (Negative); Nitrate Urine Negative (Negative); Protein Urine Negative (Negative); Specific Gravity, Urine 1.018 (1.005-1.030); Urine Appearance Clear (CLEAR); Urine Color Yellow (Yellow); pH Urine 5.5 (5-7)
[2023-12-09 21:40] LABS: Add Urine Microscopic? YES; Bacteria Urine None Seen /hpf; RBC Urine 0-2 /hpf (0-2); Squamous Epithelial Cell Urine 0-5 /hpf (0-5); WBC Urine 0-5 /hpf (0-5)
[2023-12-09 21:46] LABS: Amphetamines Screen Urine Positive (Negative); Barbiturates Screen Urine Negative (Negative); Benzodiazepines Screen Urine Negative (Negative); Cocaine Screen Urine Negative (Negative); Opiate Screen Urine Negative (Negative); PCP Screen Urine Negative (Negative); THC Screen Urine Positive (Negative)
[2023-12-09 22:03] VITALS: BP 134/98; PULSE 71; RESP 16; O2SAT 96
[2023-12-09 22:20] LABS: SARS Covid-2 Antigen Negative (Negative)
[2023-12-09 23:51] VITALS: BP 131/90; PULSE 67; RESP 18; O2SAT 95
[2023-12-10] VITALS (9 sets, daily range): BP systolic 125–151; BP diastolic 85–105; PULSE 51–89; RESP 16–18; TEMP 36.6–36.7; O2SAT 93–100
[2023-12-10] MEDS: flu vacc pf 24-25 (6 mos+) SYRINGE 45 MCG IM (11:20)
--- NOTE | 2023-12-10 17:25 | P.NPUHP_ITS ---
Providers/Chief Complaint 2 Admitting Physician: Myke Hardwick MD Primary Care Provider: Ji Heck MD Chief Complaint: SI HPI NPU History of Present Illness Jaxon Coleman is a 48 year old male who presented to the emergency department at [facility] with reports of having taken approximately 45 pills of Benadryl with a plan to end his life. The patient was medically cleared in the emergency department and was admitted to the neuropsychiatric unit for further evaluation and treatment. The patient reports that he had been scheduled yesterday to be placed directly into an inpatient substance abuse facility known as [facility] in [facility]. He reports that unfortunately the ride had arrived at 4:30 PM which was too late and the patient states that he was denied entry into the program and was told to come back in 4 days for admission at that time. The patient had reported that he had felt frustrated and states that he had all of his belongings. He reports that he had been acutely depressed. He had stated that he continues to feel suicidal. He reports low energy and low motivation. He denies any psychotic symptoms. He reports that he had last used opiates intranasally approximately 5 days ago. He reports that the longest period of sobriety off of methamphetamine was approximately 1 year ago but reports continued use despite adverse consequences. He reports a recent stressor has been the of both of his parents over the last 2 years independently. He reports that he had struggled and was unable to say goodbye to them. He had reported that he had stopped his psychotropic medications many months ago. He had reported that he is still hopeful about returning to [facility] for substance abuse treatment. He denies any history of psychosis associated with methamphetamine use. He denies any history of ame. Inpatient psychiatric history: He reports having previously been at [facility] in July 2022 for inpatient substance abuse treatment. He also endorses a history of 4 previous inpatient psychiatric hospitalizations. Outpatient psychiatric history: He reports no active psychiatric treatment at this time on an outpatient basis although he had been seen at the behavioral health clinic in [facility] in 2022. Previous psychotropic medications include Abilify, BuSpar, Lexapro, Seroquel, and gabapentin. Substance abuse history: He had reported having used methamphetamine for greater than 20 years with the longest period of sobriety being 1 year. He has reported inpatient substance abuse treatment. Get also reported having a history of opiate use for several years and a history of IV drug use. He reports no history of alcohol related withdrawal symptoms although he reports occasional alcohol use currently. He reports active marijuana use on a regular basis. Medical history: History of hepatitis C previously on treatment. He has a history of hypertension. Surgical history: None reported Allergies: No known drug allergies Family history: History of addiction and mood disorders noted in both sides of the family. Current medications: None Legal history: He reports having been incarcerated 1 time in the past but reports no legal issues actively Social history: The patient was born in [facility] and raised mainly by his biological mother and stepdad. He is the only product of his mother and father. He has 2 half-brothers from his father side of the family. He had grown up in [facility] and earned his GED. He had denied any history of sexual physical or emotional abuse. He had completed up to 10th grade. He reported being heterosexual and reports that he is currently not in the relationship as he is from his only marriage and has a child who is 11 who lives in a foster facility as his had also had a history of addiction. He reports that he had previously worked and had been living in [facility] he has a history of having lived in some homeless shelters. He reports having limited social supports at this time. Excerpt from NPU Discharge Summary from 04/16/22. Discharge Diagnosis (1) Suicidal ideation: Status: Acute (2) History of schizophrenia: Status: Acute (3) Psychosis: Status: Acute Reason for Visit SI Brief History: History of Present Illness Jaxon Coleman is a 46 year old male who presented to the emergency department with the following report: Chief Complaint: Psychiatric Symptoms Stated Complaint: SI Time Seen by Provider: 04/12/22 20:45 Source: patient Mode of arrival: ambulatory Limitations: no limitations History of Present Illness: 46-year-old male with history of depression he states that he has been having increasing thoughts of suicide. He states that he has a plan of hanging himself and states that he is been having more and more thoughts and is concerned he may actually do it and came here wanting to get help. He states he is previously admitted in July but nothing since then. He denies any worsening improving factors. Associated symptoms: Reports depression and suicidal ideation. He was admitted to the neuropsychiatric unit for definitive treatment of those issues. He presents today reporting that he had been running out of medication because he did not have appropriate appointments and has started having depression and suicidal thoughts and so came to the hospital. He reports having an inpatient hospitalization in the [place] area about 18 months ago and that he has been limited in his outpatient follow-up. He denies significant smoking past alcohol use, marijuana use but denies current cocaine, methamphetamine or other drug use. He does report a history of drug and alcohol use but has had sobriety on his side recently. He has had difficulties with methamphetamine in the past. Also periods of alcohol use. He reports he has had DUIs in the past and some other misdemeanor charges. He reports that recently medication nonadherence has led to him having difficulties with his mood. He reports he always had ADHD and behavioral problems but then when he got into his adolescence he started addiction. He reports that he has had diagnoses of schizophrenia/bipolar disorder but is not sure what really the story. We discussed the risk benefits and alternatives of initiating his previous medications at reasonable doses and then starting Lexapro 10 mg p.o. every morning and considering Abilify as a adjunct and he understood and agreed to proceed as is documented in this note. Psychiatric history: As above. Substance abuse history: As above. Family history: He does endorse having some mental health and addiction issues in the family. No known suicide attempts or completions. Developmental history: He denied any issues at /delivery and reports he learned to walk and talk and met his developmental milestones on time. He reports after he went to school he does not recall if he needed speech therapy but he did have some kind of support in school and thinks he had an IEP. His parents were together when he was born but did not split up. He reports his childhood was tough at times. He denies any major traumatic events in his life. He did not graduate from high school but he did go to the 10th grade. No additional training. He endorses being heterosexual with his longest relationship being 10 years but he does report that he has had a longer relationship with his and that they were together for a lengthy period of time and they have never gotten . He lives in apartment with his girlfriend. Never been in the . Legal history: He reports that he has been in senior care before. Medical history: He does endorse elevated blood pressure. Hospital Course Hospital Course He quickly acclimated to the individual, group and milieu therapies provided. He presented not having success with some medications. Initiated Lexapro and Abilify at both at 10 milligrams and began decreasing Seroquel and Prozac. He had significant improvement during the stay and worked with the social work team to get connected with outpatient resources. He was able to contract for safety, outside of the hospital prior to discharge. During the hospitalization he had routine laboratory studies which were within normal limits except for few outliers.? Additionally had a general medical evaluation which was also within normal limits and revealed no new acute processes. ?? Discharge Summary At the time of discharge, he endorsed being absent lethality and psychosis.? His mood and anxiety were well managed.? He endorsed a plan to avoid any drugs of abuse and follow-up with services outside of the hospital per the treatment team recommendations.? He was evaluated and deemed absent credible lethality and had received the maximum benefit from an inpatient hospitalization, so he was discharged. Meds NPU Home Medications Medication Instructions Recorded Confirmed Last Taken Type aripiprazole 5 mg tablet 5 mg PO .q am #30 tabs 07/15/22 07/19/22 Unknown Rx buspirone 15 mg tablet 15 mg PO TID #90 tabs 07/15/22 07/19/22 Unknown Rx escitalopram oxalate 10 mg tablet 10 mg PO DAILY 30 days #30 tabs 07/15/22 07/19/22 Unknown Rx gabapentin 100 mg capsule See Rx Instructions PO .COMPLEX 07/15/22 07/19/22 Unknown Rx #90 caps glecaprevir 100 mg-pibrentasvir 40 3 tab PO DAILY 12 weeks #252 tabs 07/30/22 Unknown Rx mg tablet (Mavyret) quetiapine 100 mg tablet See Rx Instructions PO .qhs #45 08/10/22 Unknown Rx tabs Allergies Allergy/AdvReac Type Severity Reaction Status Date / Time No Known Allergies Allergy Verified 07/15/22 13:02 PFSH NPU 2 PFSH: Medical History Tobacco use disorder, moderate, dependence Amphetamine use disorder, moderate, in sustained remission Anxiety Insomnia Major depressive disorder, recurrent severe without psychotic features Surgical History No pertinent past surgical history Family History Father No problems noted. Mother Low-resistance pulmonary hypertension Other Hyperlipidemia Hypertension Denies family history of Diabetes CAD (coronary artery disease) Clotting disorder Dementia Psychiatric illness Chronic kidney disease (CKD) Anesthesia complication Bleeding disorder Lung disease Cancer Stroke Social History Smoking and tobacco/nicotine status: current every day tobacco/nicotine user cigarettes Packs smoked per day: 0.5 Quit status (tobacco/nicotine): not considering quitting Second hand smoke exposure: Yes Alcohol intake: never Substance/Drug Use: former Date of last use: meth use, last use 10/05 Adopted: No Caregiver/support person: No Lives independently: No Household members: other Housing: Other Marital status: Number of children: 2 Highest education level completed: GED or Equivalent service: No Current occupational status: unemployed Special yesi needs: No Agree to transfusion: Yes Mental Status Exam 2 MSE Comments: This is an obese white male in hospital scrubs with poor grooming and limited eye contact. No abnormal involuntary motor movements except for mild psychomotor retardation. He was cooperative with exam in mild distress. Speech was decreased in rate and volume. Mood described as depressed; His affect was mood congruent and restricted. Thought process was organized. Thought content: Patient endorsed suicidal ideation admitting overdose with suicidal intent. He endorsed no homicidal ideation. There were no delusions reported or noted, he denied any auditory or visual hallucinations. Attention and concentration were intact and memory appeared reliable but none were formally tested. He is alert and oriented x3. Insight and judgment is limited.Impulse control appeared poor. Vitals/I&O/Wt Last Vital Signs Temp 98.0 F 12/10/23 14:00 Pulse 89 12/10/23 14:00 Resp 16 12/10/23 14:00 BP 125/88 12/10/23 14:00 Pulse Ox 100 12/10/23 14:00 O2 Del Method Room Air 12/10/23 06:26 Weight last 48 hrs Weight 99.79 kg Data NPU 12/09/23 20:55 12/09/23 20:55 A&P Assessment and plan (1) Major depressive disorder, recurrent: (2) Suicide attempt by other psychotropic drug overdose: (3) Opioid use disorder, moderate, dependence: (4) Methamphetamine use disorder, severe: (5) Suicidal ideation: (6) History of schizophrenia: Plan Is a 48-year-old white male with a long history of mental health and addiction issues who presents after overdose with suicidal ideation with patient reporting worsening depression with plan to be placed in inpatient substance abuse facility immediately after discharge. 1. Restart Lexapro to target depression. Begin Suboxone 4/1mg daily to target opioid dependence. 2. Encourage individual, group and milieu therapy. 3. Continue every 15 minute checks for safety. 4. Encourage sober living treatment after discharge at the highest level of care to which she is willing to commit. 5. Evaluate for 96-hour hold. Involuntary Hold Information 2 96 Hour Hold: 96 Hour Involuntary Admission: No Attestations NPU 2 Medical Necessity Statement*: Inpatient hospitalization is medically necessary and deemed to ?be ?the clinically appropriate intervention ?at this time.? We will monitor/initiate medications and make changes as indicated.? The patient will be in the hospital for over 2 midnights.? The patient?s likely length of stay 7-10 days. Coding Level of Care Code Acute Code for g Fwd Diagnoses Major depressive disorder, recurrent F33.9 Suicide attempt by other psychotropic drug overdose T43.8X2A Opioid use disorder, moderate, dependence F11.20 Methamphetamine use disorder, severe F15.20 Suicidal ideation R45.851 History of schizophrenia Z86.59
[2023-12-10] MEDS: buprenorphine-naloxone 4-1 mg Film 1 EACH SUBLINGUAL (18:52)
[2023-12-10] MEDS: trazodone 50 mg Tablet PO (20:02)
[2023-12-11 06:00] VITALS: BP 117/79; PULSE 70; RESP 18; TEMP 36.6; O2SAT 98
[2023-12-11] MEDS: buprenorphine-naloxone 4-1 mg Film 1 EACH SUBLINGUAL ×2 (08:26→18:25)
[2023-12-11] MEDS: escitalopram 10 mg Tablet PO (08:26)
[2023-12-11 14:00] VITALS: BP 155/94; PULSE 77; RESP 17; TEMP 36.4; O2SAT 97
--- NOTE | 2023-12-11 15:06 | P.NPUPN_ITS ---
Subjective NPU 2 Subjective: 48-year-old male admitted with overdose on Benadryl with suicidal ideation and depression with a history of depression and polysubstance abuse including opiates and methamphetamine. The patient reported no side effects from the Suboxone that was initiated. He had reported feeling better. He reported no side effects from the Lexapro that was initiated for depression. He had remained somewhat isolative on the milieu. He had continued to report feeling depressed and sleepy but was pleasant and redirectable on the milieu. Mental Status Exam 2 MSE Comments: This is an obese white male in hospital scrubs with poor grooming and limited eye contact. No abnormal involuntary motor movements except for mild psychomotor retardation. He was cooperative with exam in mild distress. Speech was decreased in rate and volume. Mood described as depressed; His affect remained restricted. Thought process was organized. Thought content: Patient endorsed suicidal ideation admitting overdose with suicidal intent. He endorsed no homicidal ideation. There were no delusions reported or noted, he denied any auditory or visual hallucinations. Attention and concentration were intact and memory appeared reliable but none were formally tested. He is alert and oriented x3. Insight and judgment is limited. Impulse control appeared poor. Vitals/I&O/Wt Last Vital Signs Temp 97.9 F 12/11/23 06:00 Pulse 70 12/11/23 06:00 Resp 18 12/11/23 06:00 BP 117/79 12/11/23 06:00 Pulse Ox 98 12/11/23 06:00 O2 Del Method Room Air 12/10/23 06:26 12/11/23 12/11/23 12/11/23 06:59 14:59 22:59 Intake Total 480 / 480 Balance 480 / 480 Weight last 48 hrs Weight 97.069 kg Weight 99.79 kg Data NPU 12/09/23 20:55 12/09/23 20:55 A&P Assessment and plan (1) Major depressive disorder, recurrent: (2) Suicide attempt by other psychotropic drug overdose: (3) Opioid use disorder, moderate, dependence: (4) Methamphetamine use disorder, severe: (5) Suicidal ideation: (6) History of schizophrenia: Plan Is a 48-year-old white male with a long history of mental health and addiction issues who presents after overdose with suicidal ideation with patient reporting worsening depression with plan to be placed in inpatient substance abuse facility immediately after discharge. 1. Restart Lexapro to target depression. Begin Suboxone 4/1mg daily to target opioid dependence. 2. Encourage individual, group and milieu therapy. 3. Continue every 15 minute checks for safety. 4. Encourage sober living treatment after discharge at the highest level of care to which she is willing to commit. 5. Evaluate for 96-hour hold. Involuntary Hold Information 2 96 Hour Hold: 96 Hour Involuntary Admission: No Attestations NPU 2 Medical Necessity Statement*: Inpatient hospitalization is medically necessary and deemed to ?be ?the clinically appropriate intervention ?at this time.? We will monitor/initiate medications and make changes as indicated.? The patient?s likely length of stay 2-3 days. Coding Level of Care Code Acute Code for [facility] Fwd Diagnoses Major depressive disorder, recurrent F33.9 Suicide attempt by other psychotropic drug overdose T43.8X2A Opioid use disorder, moderate, dependence F11.20 Methamphetamine use disorder, severe F15.20 Suicidal ideation R45.851 History of schizophrenia Z86.59
--- NOTE | 2023-12-11 16:55 | PC.NURSE ---
THIS AMMUNITION OFFICER WENT IN TO DO 1600 VITALS AND PT BEGAN TELLING ME THAT I DID NOT EAT THAT THIS AMMUNITION OFFICER THEN ASKED IF I COULD GET HIS BLOOD PRESSURE, PT HAD NO RESPONSE OTHER THAN BEGAN PUNCHING HIS ARM AT THE AIR MULTIPLE TIMES. RESPIRATIONS WERE OBTAINED AT 16. AT THIS TIME ALL PTS NEEDS WERE MET. CHARGE NURSE NOTIFIED.
[2023-12-11] MEDS: trazodone 50 mg Tablet PO (20:23)
[2023-12-11] MEDS: ibuprofen 600 mg Tablet PO (20:23)
[2023-12-11 20:47] VITALS: BP 143/100; PULSE 71; RESP 18; TEMP 36.4; O2SAT 97
[2023-12-11] MEDS: hyDROXYzine 25 mg Capsule 50 MG PO (20:53)
[2023-12-11 20:55] VITALS: BP 149/104
[2023-12-11 22:20] VITALS: BP 132/86
[2023-12-12 06:00] VITALS: BP 129/80; PULSE 80; RESP 18; TEMP 36.8; O2SAT 98
[2023-12-12] MEDS: nicotine 4 mg lozenge MUCOUS MEM ×4 (06:26→18:01)
[2023-12-12] MEDS: buprenorphine-naloxone 4-1 mg Film 1 EACH SUBLINGUAL ×2 (08:39→17:36)
[2023-12-12] MEDS: escitalopram 10 mg Tablet PO (08:39)
[2023-12-12] MEDS: hyDROXYzine 25 mg Capsule 50 MG PO ×2 (08:42→20:13)
[2023-12-12 14:00] VITALS: BP 145/99; PULSE 79; RESP 18; TEMP 36.6; O2SAT 94
--- NOTE | 2023-12-12 17:40 | P.NPUPN_ITS ---
Subjective NPU 2 Subjective: 48-year-old male admitted with overdose on Benadryl with suicidal ideation and depression with a history of depression and polysubstance abuse including opiates and methamphetamine. The patient reported no side effects from his medication. He reported feeling more optimistic about going to substance abuse treatment inpatient at [facility]. Patient had endorsed significant depression in the past and reported that Lexapro had been unhelpful previously at 10 mg but he had never gone to a higher dose before. He was compliant and redirectable on the milieu. Mental Status Exam 2 MSE Comments: This is an obese white male in hospital scrubs with poor grooming and limited eye contact. No abnormal involuntary motor movements except for mild psychomotor retardation. He was cooperative with exam in mild distress. Speech was decreased in rate and volume. Mood described as better. His affect was less restricted today. Thought process was organized. Thought content: Patient endorsed suicidal ideation admitting overdose with suicidal intent. He endorsed no homicidal ideation. There were no delusions reported or noted, he denied any auditory or visual hallucinations. Attention and concentration were intact and memory appeared reliable but none were formally tested. He is alert and oriented x3. Insight was improving and judgment is fair. Impulse control appeared poor. Vitals/I&O/Wt Last Vital Signs Temp 97.8 F 12/12/23 14:00 Pulse 79 12/12/23 14:00 Resp 18 12/12/23 14:00 BP 145/99 12/12/23 14:00 Pulse Ox 94 12/12/23 14:00 O2 Del Method Room Air 12/10/23 06:26 Weight last 48 hrs Weight 97.069 kg Data NPU 12/09/23 20:55 12/09/23 20:55 A&P Assessment and plan (1) Major depressive disorder, recurrent: (2) Suicide attempt by other psychotropic drug overdose: (3) Opioid use disorder, moderate, dependence: (4) Methamphetamine use disorder, severe: (5) Suicidal ideation: (6) History of schizophrenia: Plan Is a 48-year-old white male with a long history of mental health and addiction issues who presents after overdose with suicidal ideation with patient reporting worsening depression with plan to be placed in inpatient substance abuse facility immediately after discharge. 1. Continue Lexapro 10mg daily to target depression. Continue Suboxone 8/2mg daily to target opioid dependence. 2. Encourage individual, group and milieu therapy. 3. Continue every 15 minute checks for safety. 4. Encourage sober living treatment after discharge at the highest level of care to which she is willing to commit. 5. Evaluate for 96-hour hold. Involuntary Hold Information 2 96 Hour Hold: 96 Hour Involuntary Admission: No Attestations NPU 2 Medical Necessity Statement*: Inpatient hospitalization is medically necessary and deemed to ?be ?the clinically appropriate intervention ?at this time.? We will monitor/initiate medications and make changes as indicated.? The patient?s likely length of stay 1-2 days. Coding Level of Care Code Acute Code for [facility] Fwd Diagnoses Major depressive disorder, recurrent F33.9 Suicide attempt by other psychotropic drug overdose T43.8X2A Opioid use disorder, moderate, dependence F11.20 Methamphetamine use disorder, severe F15.20 Suicidal ideation R45.851 History of schizophrenia Z86.59
[2023-12-12 20:09] VITALS: BP 146/106; PULSE 72; RESP 17; TEMP 37; O2SAT 95
[2023-12-12] MEDS: ibuprofen 600 mg Tablet PO (20:13)
[2023-12-12] MEDS: trazodone 50 mg Tablet PO (20:13)
[2023-12-12 22:00] VITALS: BP 131/86
[2023-12-13 06:00] VITALS: BP 126/83; PULSE 66; RESP 18; TEMP 36.3; O2SAT 97
[2023-12-13] MEDS: nicotine 4 mg lozenge MUCOUS MEM ×2 (07:47→10:57)
[2023-12-13] MEDS: escitalopram 10 mg Tablet PO (07:47)
[2023-12-13] MEDS: buprenorphine-naloxone 4-1 mg Film 1 EACH SUBLINGUAL (07:47)
[2023-12-13] MEDS: polyethylene glycol 3350 Pkt 17 gm PO (08:42)
--- NOTE | 2023-12-13 08:48 | PC.NURSE ---
Morning assessment Patient states that he is good. Patient said that he was up every hour during the night, but that this is typical for him. Patient reports that his anxiety is a little bit high because he is supposed to leave to day. Rates depression 0/10.
[2023-12-13 12:00] VITALS: BP 126/83; PULSE 66; RESP 18; TEMP 36.3; O2SAT 97
--- NOTE | 2023-12-13 17:51 | P.NPUDS_ITS ---
Diagnoses at Discharge Discharge Diagnosis (1) Major depressive disorder, recurrent: Status: Acute (2) Suicide attempt by other psychotropic drug overdose: Status: Acute (3) Opioid use disorder, moderate, dependence: Status: Acute (4) Methamphetamine use disorder, severe: Status: Acute (5) Suicidal ideation: Status: Ruled-out (6) History of schizophrenia: Status: Acute Reason for Visit Reason for Visit: SI Brief History: History of Present Illness Jaxon Coleman is a 48 year old male who presented to the emergency department at [facility] with reports of having taken approximately 45 pills of Benadryl with a plan to end his life. The patient was medically cleared in the emergency department and was admitted to the neuropsychiatric unit for further evaluation and treatment. The patient reports that he had been scheduled yesterday to be placed directly into an inpatient substance abuse facility known as [facility] in [facility]. He reports that unfortunately the ride had arrived at 4:30 PM which was too late and the patient states that he was denied entry into the program and was told to come back in 4 days for admission at that time. The patient had reported that he had felt frustrated and states that he had all of his belongings. He reports that he had been acutely depressed. He had stated that he continues to feel suicidal. He reports low energy and low motivation. He denies any psychotic symptoms. He reports that he had last used opiates intranasally approximately 5 days ago. He reports that the longest period of sobriety off of methamphetamine was approximately 1 year ago but reports continued use despite adverse consequences. He reports a recent stressor has been the of both of his parents over the last 2 years independently. He reports that he had struggled and was unable to say goodbye to them. He had reported that he had stopped his psychotropic medications many months ago. He had reported that he is still hopeful about returning to [facility] for substance abuse treatment. He denies any history of psychosis associated with methamphetamine use. He denies any history of ame. Inpatient psychiatric history: He reports having previously been at [facility] in July 2022 for inpatient substance abuse treatment. He also endorses a history of 4 previous inpatient psychiatric hospitalizations. Outpatient psychiatric history: He reports no active psychiatric treatment at this time on an outpatient basis although he had been seen at the behavioral health clinic in [place] [facility] in 2022. Previous psychotropic medications include Abilify, BuSpar, Lexapro, Seroquel, and gabapentin. Substance abuse history: He had reported having used methamphetamine for greater than 20 years with the longest period of sobriety being 1 year. He has reported inpatient substance abuse treatment. Get also reported having a history of opiate use for several years and a history of IV drug use. He reports no history of alcohol related withdrawal symptoms although he reports occasional alcohol use currently. He reports active marijuana use on a regular basis. Medical history: History of hepatitis C previously on treatment. He has a history of hypertension. Surgical history: None reported Allergies: No known drug allergies Family history: History of addiction and mood disorders noted in both sides of the family. Current medications: None Legal history: He reports having been incarcerated 1 time in the past but reports no legal issues actively Social history: The patient was born in [place] and raised mainly by his biological mother and stepdad. He is the only product of his mother and father. He has 2 half-brothers from his father side of the family. He had grown up in [place] and earned his GED. He had denied any history of sexual physical or emotional abuse. He had completed up to 10th grade. He reported being heterosexual and reports that he is currently not in the relationship as he is from his only marriage and has a child who is 11 who lives in a foster facility as his had also had a history of addiction. He reports that he had previously worked and had been living in [facility] he has a history of having lived in some homeless shelters. He reports having limited social supports at this time. Excerpt from NPU Discharge Summary from 04/16/22. Discharge Diagnosis (1) Suicidal ideation: Status: Acute (2) History of schizophrenia: Status: Acute (3) Psychosis: Status: Acute Reason for Visit SI Brief History: History of Present Illness Jaxon Coleman is a 46 year old male who presented to the emergency department with the following report: Chief Complaint: Psychiatric Symptoms Stated Complaint: SI Time Seen by Provider: 04/12/22 20:45 Source: patient Mode of arrival: ambulatory Limitations: no limitations History of Present Illness: 46-year-old male with history of depression he states that he has been having increasing thoughts of suicide. He states that he has a plan of hanging himself and states that he is been having more and more thoughts and is concerned he may actually do it and came here wanting to get help. He states he is previously admitted in July but nothing since then. He denies any worsening improving factors. Associated symptoms: Reports depression and suicidal ideation. He was admitted to the neuropsychiatric unit for definitive treatment of those issues. He presents today reporting that he had been running out of medication because he did not have appropriate appointments and has started having depre ssion and suicidal thoughts and so came to the hospital. He reports having an inpatient hospitalization in the [facility] about 18 months ago and that he has been limited in his outpatient follow-up. He denies significant smoking past alcohol use, marijuana use but denies current cocaine, methamphetamine or other drug use. He does report a history of drug and alcohol use but has had sobriety on his side recently. He has had difficulties with methamphetamine in the past. Also periods of alcohol use. He reports he has had DUIs in the past and some other misdemeanor charges. He reports that recently medication nonadherence has led to him having difficulties with his mood. He reports he always had ADHD and behavioral problems but then when he got into his adolescence he started addiction. He reports that he has had diagnoses of schizophrenia/bipolar disorder but is not sure what really the story. We discussed the risk benefits and alternatives of initiating his previous me dications at reasonable doses and then starting Lexapro 10 mg p.o. every morning and considering Abilify as a adjunct and he understood and agreed to proceed as is documented in this note. Psychiatric history: As above. Substance abuse history: As above. Family history: He does endorse having some mental health and addiction issues in the family. No known suicide attempts or completions. Developmental history: He denied any issues at /delivery and reports he learned to walk and talk and met his developmental milestones on time. He reports after he went to school he does not recall if he needed speech therapy but he did have some kind of support in school and thinks he had an IEP. His parents were together when he was born but did not split up. He reports his childhood was tough at times. He denies any major traumatic events in his life. He did not graduate from high school but he did go to the 10th grade. No additional training. He endorses being heterosexual with his longest relationship being 10 years but he does report that he has had a longer relationship with his and that they were together for a lengthy period of time and they have never gotten . He lives in apartment with his girlfriend. Never been in the . Legal history: He reports that he has been in intermediate before. Medical history: He does endorse elevated blood pressure. Hospital Course Hospital Course He quickly acclimated to the individual, group and milieu therapies provided. He presented not having success with some medications. Initiated Lexapro and Abilify at both at 10 milligrams and began decreasing Seroquel and Prozac. He had significant improvement during the stay and worked with the social work team to get connected with outpatient resources. He was able to contract for safety, outside of the hospital prior to discharge. During the hospitalization he had routine laboratory studies which were within normal limits except for few outliers.? Additionally had a general medical evaluation which was also within normal limits and revealed no new acute processes. ?? Discharge Summary At the time of discharge, he endorsed being absent lethality and psychosis.? His mood and anxiety were well managed.? He endorsed a plan to avoid any drugs of abuse and follow-up with services outside of the hospital per the treatment team recommendations.? He was evaluated and deemed absent credible lethality and had received the maximum benefit from an inpatient hospitalization, so he was discharged. Hospital Course Hospital Course During the hospitalization, the patient had routine laboratory studies which were within normal limits except for a few outliers.? Additionally, there was a general medical evaluation which was also within normal limits and revealed no new acute processes.? At the time of discharge, lethality was denied and psychosis was resolving.? Mood and anxiety were well managed.? The patient endorsed a plan to avoid all drugs of abuse and follow up with the aftercare recommendations of the treatment team.? The patient was evaluated and deemed to be absent credible lethality and had achieved the maximum benefit from an inpatient hospitalization, and so was discharged. ? Patient restarted on lexapro 10mg daily to target depression and anxiety. Suboxone was prescribed and titrated up to dose of 8/2mg daily to target opioid dependence with overall improvement in mood noted at the time of discharge to [facility] for inpatient substance abuse treatment. Involuntary Hold Information 96 Hour Hold: 96 Hour Involuntary Admission: No Mental Status Exam MSE Comments: This is an obese white male in hospital scrubs with improved grooming and limited eye contact. No abnormal involuntary motor movements except for mild psychomotor retardation. He was cooperative with exam in mild distress. Speech was normal in rate and volume. Mood described as better. His affect was brighter on discharge. Thought process was organized. Thought content: Patient endorsed no suicidal ideation on discharge. He endorsed no homicidal ideation. There were no delusions reported or noted, he denied any auditory or visual hallucinations. Attention and concentration were intact and memory appeared reliable but none were formally tested. He is alert and oriented x3. Insight was improving and judgment is fair. Impulse control appeared better at the time of discharge. Discharge Data Studies Completed and Pending: Laboratory Results WBC 12.39 10^3/uL (3. 29-11.43) H 12/09/23 20:55 RBC 5.20 10^6/uL (3.8 5-5.65) 12/09/23 20:55 Hgb 15.00 g/dL (11.27 -16.99) 12/09/23 20:55 Hct 46.3 % (37-53) 12/09/23 20:55 MCV 89.0 fl (82-101) 12/09/23 20:55 MCH 28.8 pg (27-33) 12/09/23 20:55 MCHC 32.4 g/dL (30-55) 12/09/23 20:55 RDW 13.3 % (12.1-15.1 ) 12/09/23 20:55 Plt Count 225 10^3/cmm (157 -399) 12/09/23 20:55 MPV 10.4 fL (7.4-10.4 ) 12/09/23 20:55 Neut % (Auto) 50.5 % 12/09/23 20:55 Lymph % (Auto) 39.1 % 12/09/23 20:55 [place] % (Auto) 7.0 % 12/09/23 20:55 Eos % (Auto) 2.3 % 12/09/23 20:55 Baso % (Auto) 0.6 % 12/09/23 20:55 Neut # (Auto) 6.26 10^3/uL (1.8 -7.7) 12/09/23 20:55 Lymph # (Auto) 4.9 10^3/uL (0.8- 4.8) H 12/09/23 20:55 [place] # (Auto) 0.9 10^3/uL (0.2- 0.9) 12/09/23 20:55 Eos # (Auto) 0.3 10^3/uL (0.0- 0.8) 12/09/23 20:55 Baso # (Auto) 0.1 10^3/uL (0.0- 0.1) 12/09/23 20:55 Nucleated RBC % (a uto) 0 % 12/09/23 20:55 Nucleated RBCs # 0.0 /100WBC 12/09/23 20:55 Sodium 140 mmol/L (136-1 45) 12/09/23 20:55 Potassium 3.9 mmol/L (3.5-5 .1) 12/09/23 20:55 Chloride 102 mmol/L (98-10 7) 12/09/23 20:55 Carbon Dioxide 28 mmol/L (22-29) 12/09/23 20:55 Anion Gap 13.9 (5-19) 12/09/23 20:55 BUN 13 mg/dL (6-20) 12/09/23 20:55 Creatinine 0.8 mg/dL (0.7-1. 2) 12/09/23 20:55 GFR Calculation 104.1 mL/min (90- 130) 12/09/23 20:55 Glucose 89 mg/dL (65-115) 12/09/23 20:55 Calculated Osmolal ity 290 mOsm/kg (285- 295) 12/09/23 20:55 Calcium 9.2 mg/dL (8.5-10 .5) 12/09/23 20:55 Total Bilirubin 0.6 mg/dL (0.15-1 .2) 12/09/23 20:55 AST 27 U/L (0-40) 12/09/23 20:55 ALT 60 U/L (0-41) H 12/09/23 20:55 Alkaline Phosphata se 86 U/L (40-130) 12/09/23 20:55 Total Protein 7.2 g/dL (6.6-8.7 ) 12/09/23 20:55 Albumin 4.2 g/dL (3.5-5.2 ) 12/09/23 20:55 Globulin 3.0 g/dL (1.3-4.6 ) 12/09/23 20:55 Urine Color Yellow (Yellow) 12/09/23 20:09 Urine Appearance Clear (CLEAR) 12/09/23 20:09 Urine pH 5.5 (5-7) 12/09/23 20:09 Ur Specific Gravit y 1.018 (1.005-1.0 30) 12/09/23 20:09 Urine Protein Negative (Negati ve) 12/09/23 20:09 Urine Glucose (UA) Negative (Normal ) 12/09/23 20:09 Urine Ketones Negative (Negati ve) 12/09/23 20:09 Urine Blood Negative (Negati ve) 12/09/23 20:09 Urine Nitrate Negative (Negati ve) 12/09/23 20:09 Urine Bilirubin Negative (Negati ve) 12/09/23 20:09 Urine Urobilinogen 1.0 mg/dL (Negati ve) 12/09/23 20:09 Ur Leukocyte Mary Kay ase Negative (Negati ve) 12/09/23 20:09 Urine RBC 0-2 /hpf (0-2) 12/09/23 20:09 Urine WBC 0-5 /hpf (0-5) 12/09/23 20:09 Ur Squamous Epith Cells 0-5 /hpf (0-5) 12/09/23 20:09 Amorphous Sediment Not Reportable 12/09/23 20:09 Urine Bacteria None seen /hpf (N ONE) 12/09/23 20:09 Hyaline Casts 0.40 /lpf 12/09/23 20:09 Salicylates < 0.3 mg/dL (3-10 ) L 12/09/23 20:55 Urine Opiates Scre en Negative ng/mL (N egative) 12/09/23 20:09 Acetaminophen < 5.0 ug/mL (10-3 0) L 12/09/23 20:55 Ur Barbiturates Sc reen Negative ng/mL (N egative) 12/09/23 20:09 Ur Phencyclidine S crn Negative ng/mL (N egative) 12/09/23 20:09 Ur Amphetamines Sc reen Positive ng/mL (N egative) H 12/09/23 20:09 U Benzodiazepines Scrn Negative ng/mL (N egative) 12/09/23 20:09 Urine Cocaine Scre en Negative ng/mL (N egative) 12/09/23 20:09 U Marijuana (THC) Screen Positive ng/mL (N egative) H 12/09/23 20:09 SARS-CoV-2 Ag (Rap id) Negative (Negati ve) 12/09/23 21:35 Vitals: Last Vital Signs Temp 97.3 F L 12/13/23 12:00 Pulse 66 12/13/23 12:00 Resp 18 12/13/23 12:00 BP 126/83 12/13/23 12:00 Pulse Ox 97 12/13/23 12:00 O2 Del Method Room Air 12/13/23 06:00 Discharge Plan Discharge Patient Disposition: Home Condition: Stable Prescriptions: New escitalopram oxalate 10 mg Tablet 10 mg PO DAILY 30 Days Qty: 30 1RF buprenorphine-naloxone [Suboxone] 4-1 mg film 1 film buccal BID 15 Days Qty: 30 0RF Rx Instructions: place 1 strip/tab under (each) side of tongue twice a day. trazodone 50 mg tablet 50 mg PO .qhs Qty: 30 0RF Continued Mavyret 100-40 mg tablet 3 tab PO DAILY 84 Days Qty: 252 0RF Rx Instructions: must administer with a meal/food Discontinued buspirone 15 mg tablet 15 mg PO TID Qty: 90 1RF Rx Instructions: Take one tablet morning, afternoon, and evening gabapentin 100 mg capsule See Rx Instructions PO .COMPLEX Qty: 90 1RF Rx Instructions: Take one capsule every morning and two capsules at night time escitalopram oxalate 10 mg tablet 10 mg PO DAILY 30 Days Qty: 30 1RF aripiprazole 5 mg tablet 5 mg PO .q am Qty: 30 1RF Rx Instructions: Take one tablet by mouth every morning quetiapine 100 mg tablet See Rx Instructions PO .qhs Qty: 45 2RF Rx Instructions: Take one and one-half tablets by mouth every night at bedtime; stop other doses of this med Discharge Orders: Discharge Order (Routine); Ordered 12/13/23 Ordered By: Kirk Wahl Referrals: [facility] [Other] - 12/13/23 2:00 pm (Admission) [facility] [Outside] - 12/19/23 9:30 am (Initial appointment at 9:30 ck in with Nida Tele-visit in [facility] office) Ji Heck MD [Primary Care Provider] - Discharge Diet: Usual diet Discharge Activity: Resume usual activity Patient Instructions: Escitalopram (By mouth) (Lexapro), Buprenorphine/Naloxone (Into the mouth) (Bunavail, Suboxone,..., Depression (DC), Methamphetamine Use Disorder (DC), Help Prevent Suicide (DC), Suicide Prevention (DC), Opioid Safety Discharge Attestations NPU Time Spent in Discharge Care*: less than 30 min Specific Discharge Activities: Specific discharge activities: educating patient, discussing with case assistant/social workers/dc planners and documenting/other paperwork Coding Level of Care Code Acute Code for [facility] Fwd Diagnoses Major depressive disorder, recurrent F33.9 Suicide attempt by other psychotropic drug overdose T43.8X2A Opioid use disorder, moderate, dependence F11.20 Methamphetamine use disorder, severe F15.20 Suicidal ideation R45.851 History of schizophrenia Z86.59
== END 2023-12-13 12:53 | disposition home or self-care (01) | DRG 918 ==
LOC: ER 22:43 → NP 12-10 05:47
PROVIDERS: Admitting Provider Psychiatry & Neurology Psychiatry; Emergency Provider Emergency Medicine; PCP Family Medicine; Visit Provider Psychiatry & Neurology Psychiatry
DX: T45.0X2A Poisoning by antiallergic and antiemetic drugs, intentional self-harm, initial encounter (principal); F33.9 Major depressive disorder, recurrent, unspecified; R45.851 Suicidal ideations; F11.20 Opioid dependence, uncomplicated; F17.210 Nicotine dependence, cigarettes, uncomplicated; F20.9 Schizophrenia, unspecified; E66.9 Obesity, unspecified; Z68.27 Body mass index [BMI] 27.0-27.9, adult; Z91.148 Patient's other noncompliance with medication regimen for other reason
CPT/HCPCS: 80053; 80306; 80307; 81001; 85025; 87426; 90471; 90686; 93005; 97150; 97165; 99285; J0573

== ENCOUNTER 2023-12-21 13:45 | Emergency (ER) | payer OTHER, MEDICAID, SELFPAY ==
[2023-12-21 13:48] VITALS: BP 134/114; PULSE 92; RESP 17; TEMP 36.8; O2SAT 94
--- NOTE | 2023-12-21 14:04 | ED_ITS ---
HPI - Nausea/Vomiting/Diarrhea 2 General: Chief complaint: Nausea/Vomiting/Diarrhea Stated complaint: n/d Abd Pain Time Seen by Provider: 12/21/23 13:49 History of Present Illness: 48-year-old man with a history of schizo phrenia, tobacco dependence, amphetamine abuse who was recently admitted to the psychiatric unit and is now in a rehabilitation facility. He says he was constipated while he was here and ended up taking some meds and has had diarrhea for several days. He says the facility where he is at will not let him have anything to drink but water. He feels like he might be dehydrated. No specific abdominal pain. He has been having gurgling and some cramping. No nausea or vomiting. No trouble taking down fluids. Related Data Home Medications Medication Instructions Recorded Confirmed bismuth subsalicylate 525 mg/15 mL 525 mg PO Q30M PRN upset stomach 12/21/23 12/21/23 oral suspension loperamide 2 mg tablet (Imodium 2 mg PO Q4H PRN loose stool 12/21/23 12/21/23 A-D) simethicone 125 mg capsule (Gas-X 125 mg PO DAILY PRN Gastric Reflux 12/21/23 12/21/23 Extra Strength) Previous Rx's Medication Instructions Recorded buprenorphine 4 mg-naloxone 1 mg 1 film buccal BID 15 days #30 ea 12/13/23 sublingual film (Suboxone) escitalopram oxalate 10 mg tablet 10 mg PO DAILY 30 days #30 tabs 12/13/23 trazodone 50 mg tablet 50 mg PO .qhs #30 tabs 12/13/23 ondansetron 8 mg disintegrating 8 mg PO Q6H #14 tabs 12/21/23 tablet Allergies Allergy/AdvReac Type Severity Reaction Status Date / Time No Known Allergies Allergy Verified 12/19/23 10:17 Review of Systems 2 Narrative: Constitutional symptoms: Negative except as documented in HPI. Skin symptoms: Negative except as documented in HPI. Eye symptoms: Negative except as documented in HPI. ENMT symptoms: Negative except as documented in HPI. Respiratory symptoms: Negative except as documented in HPI. Cardiovascular symptoms: Negative except as documented in HPI. Gastrointestinal symptoms: Negative except as documented in HPI. Genitourinary symptoms: Negative except as documented in HPI. Musculoskeletal symptoms: Negative except as documented in HPI. Neurologic symptoms: Negative except as documented in HPI. Psychiatric symptoms: Negative except as documented in HPI. Endocrine symptoms: Negative except as documented in HPI. PFSH ED 2 PFSH: Medical History (Updated 12/21/23 @ 15:24 by Anna Soliman MD) Psychiatric care History of schizophrenia Tobacco use disorder, moderate, dependence Amphetamine use disorder, moderate, in sustained remission Anxiety Insomnia Major depressive disorder, recurrent severe without psychotic features Surgical History No pertinent past surgical history Family History Father No problems noted. Mother Low-resistance pulmonary hypertension Other Hyperlipidemia Hypertension Denies family history of Diabetes CAD (coronary artery disease) Clotting disorder Dementia Psychiatric illness Chronic kidney disease (CKD) Anesthesia complication Bleeding disorder Lung disease Cancer Stroke Social History Smoking and tobacco/nicotine status: current every day tobacco/nicotine user cigarettes Packs smoked per day: 0.5 Quit status (tobacco/nicotine): not considering quitting Second hand smoke exposure: Yes Alcohol intake: never Substance/Drug Use: former Date of last use: meth use, last use 10/05 Adopted: No Caregiver/support person: No Lives independently: No Household members: other Housing: Other Marital status: Number of children: 2 Highest education level completed: GED or Equivalent service: No Current occupational status: unemployed Special yesi needs: No Agree to transfusion: Yes Physical Exam 2 Narrative: EXAM NARRATIVE: General: Alert, no acute distress. Skin: Warm, dry. Head: Normocephalic, atraumatic. Neck: Supple, trachea midline. Eye: Extraocular movements are intact. Ears, nose, mouth and throat: mucosa moist. Cardiovascular: Regular, Normal peripheral perfusion. Respiratory: Lungs are clear to auscultation, respirations are non-labored, breath sounds are equal, Symmetrical chest wall expansion. Gastrointestinal: Soft, Nontender, Non distended Musculoskeletal: Normal ROM, no deformity. Neurological: Alert and oriented, No focal neurological deficit observed. Psychiatric: Cooperative, appropriate mood & affect. Course 2 Vital Signs: Vital signs: Vital Signs Temperature 98.2 F 12/21/23 13:48 Pulse Rate 92 12/21/23 13:48 Respiratory Rate 17 12/21/23 13:48 Blood Pressure 134/114 12/21/23 13:48 Pulse Oximetry 94 12/21/23 13:48 Oxygen Delivery Me thod Room Air 12/21/23 13:48 MDM - Nausea/Vomiting/Diarrhea Medical Decision Making Medical decision making: Differential diagnosis including but not limited to and based on the above HPI, review of systems and physical exam: X-ray to evaluate for obstruction or continued constipation. Basic lab work to look for leukocytosis which might indicate a bacterial infection and to evaluate for renal failure. Orders placed to evaluate differential diagnosis based on the above differential, HPI and physical exam Abdomen x-ray: Nonspecific bowel gas pattern. No evidence of free air or obstruction. This was reviewed and interpreted by myself the emergency room physician. Lab Review: Laboratory results were reviewed and interpreted by myself the emergency room physician. Lab work is unremarkable. I reviewed the patient's medical record. Reexamination: Patient remained stable. No increased work of breathing. No altered mental status. No focal motor deficits. Assessment and plan: Diarrhea - Discharged home - Discussed plan with patient. Answered any questions. - Evaluation and treatment of this problem were appropriate in the emergency setting. Lab Data 12/21/23 14:29 12/21/23 14:29 Radiology Impressions Abdomen X-Ray 12/21/23 14:25 IMPRESSION: No acute abnormality. Laboratory Results WBC 12.61 10^3/uL (3.29-11.43) H 12/21/23 14:29 RBC 4.96 10^6/uL (3.85-5.65) 12/21/23 14:29 Hgb 14.60 g/dL (11.27-16.99) 12/21/23 14:29 Hct 43.5 % (37-53) 12/21/23 14:29 MCV 87.7 fl (82-101) 12/21/23 14:29 MCH 29.4 pg (27-33) 12/21/23 14:29 MCHC 33.6 g/dL (30-55) 12/21/23 14:29 RDW 13.2 % (12.1-15.1) 12/21/23 14:29 Plt Count 233 10^3/cmm (157-399) 12/21/23 14:29 MPV 10.1 fL (7.4-10.4) 12/21/23 14:29 Neut % (Auto) 56.0 % 12/21/23 14:29 Lymph % (Auto) 32.9 % 12/21/23 14:29 Stafford % (Auto) 8.6 % 12/21/23 14:29 Eos % (Auto) 1.4 % 12/21/23 14:29 Baso % (Auto) 0.6 % 12/21/23 14:29 Neut # (Auto) 7.07 10^3/uL (1.8-7.7) 12/21/23 14:29 Lymph # (Auto) 4.2 10^3/uL (0.8-4.8) 12/21/23 14:29 Stafford # (Auto) 1.1 10^3/uL (0.2-0.9) H 12/21/23 14:29 Eos # (Auto) 0.2 10^3/uL (0.0-0.8) 12/21/23 14: Baso # (Auto) 0.1 10^3/uL (0.0-0.1) 12/21/23 14:29 Nucleated RBC % (auto) 0 % 12/21/23 14: Nucleated RBCs # 0.0 /100WBC 12/21/23 14:29 Sodium 138 mmol/L (136-145) 12/21/23 14:29 Potassium 4.2 mmol/L (3.5-5.1) 12/21/23 14: Chloride 102 mmol/L (98-107) 12/21/23 14: Carbon Dioxide 27 mmol/L (22-29) 12/21/23 14:29 Anion Gap 13.2 (5-19) 12/21/23 14:29 BUN 9 mg/dL (6-20) 12/21/23 14:29 Creatinine 0.6 mg/dL (0.7-1.2) L 12/21/23 14:29 GFR Calculation 145.0 mL/min (90-130) H 12/21/23 14:29 Glucose 100 mg/dL (65-115) 12/21/23 14:29 Calculated Osmolality 285 mOsm/kg (285-295) 12/21/23 14:29 Calcium 8.9 mg/dL (8.5-10.5) 12/21/23 14:29 Total Bilirubin 0.5 mg/dL (0.15-1.2) 12/21/23 14:29 AST 42 U/L (0-40) H 12/21/23 14:29 ALT 77 U/L (0-41) H 12/21/23 14:29 Alkaline Phosphatase 90 U/L (40-130) 12/21/23 14:29 Total Protein 7.2 g/dL (6.6-8.7) 12/21/23 14:29 Albumin 4.0 g/dL (3.5-5.2) 12/21/23 14:29 Globulin 3.2 g/dL (1.3-4.6) 12/21/23 14:29 All radiology interpretation(s) finalized by discharge Discharge Plan Discharge Patient Disposition: Home Clinical Impression: Gastroenteritis Condition: Stable Prescriptions: New ondansetron 8 mg tablet,disintegrating 8 mg PO Q6H Qty: 14 0RF Rx Instructions: Take 1/2-1 tab every 6 hours as needed for nausea and vomiting No Action escitalopram oxalate 10 mg Tablet 10 mg PO DAILY 30 Days Qty: 30 1RF buprenorphine-naloxone [Suboxone] 4-1 mg film 1 film buccal BID 15 Days Qty: 30 0RF Rx Instructions: place 1 strip/tab under (each) side of tongue twice a day. trazodone 50 mg tablet 50 mg PO .qhs Qty: 30 0RF loperamide [Imodium A-D] 2 mg Tablet 2 mg PO Q4H PRN (Reason: loose stool ) Rx Instructions: administer after each loose stool until symptoms controlled; do not exceed 8 mg per 24 hrs Pepto-Bismol 525 mg/15 mL Suspension 525 mg PO Q30M PRN (Reason: upset stomach ) Rx Instructions: do not exceed 8 doses in a 24 hour period simethicone [Gas-X Extra Strength] 125 mg Capsule 125 mg PO DAILY PRN (Reason: Gastric Reflux) Discharge Orders: Discharge ED (Routine); Ordered 12/21/23 Ordered By: Anna Soliman Referrals: Ji Heck MD [Primary Care Provider] - Discharge Diet: Advance as tolerated Discharge Activity: Increase activity as tolerated Patient Instructions: Diarrhea - Adult, Opioid Safety, Pain Management Activity Restrictions/Additional Instructions: Thank you for choosing [facility] for your healthcare needs today. Please realize this is an emergency room and that we are providing you with a medical screening exam and this may not be complete and all inclusive of all the testing and or work up that you may need to determine your ailment or severity of your illness. You have been screened and evaluated and felt safe for discharge. Health conditions do change or evolve sometimes and as such it is important that you follow up with your Primary Doctor to be re checked, 3-5 days is a general good time frame for follow up. You are always welcome to return to the ED for re assessment if your symptoms are worsening or you have new concerns Coding Level of Care Code ED Filtering Machine T[employer] Helper for Svitlana Marie
--- NOTE | 2023-12-21 14:25 | XR_ITS ---
WS: [id number] XR abdomen 1V* [id number] REASON FOR EXAM: abd pain FINDINGS: No free air or retroperitoneal air. Multiple gas-filled nondistended loops of small bowel. Gas-filled colon which is not significantly di stended. No urinary tract calculi. Lumbar spine and bony pelvis unremarkable. No mass identified. XR/XR abdomen 1V* [id number] IMPRESSION: No acute abnormality.
[2023-12-21 14:45] LABS: Basophils # 0.1 10^3/uL (0.0-0.1); Basophils % 0.6 %; Eosinophils # 0.2 10^3/uL (0.0-0.8); Eosinophils % 1.4 %; Hematocrit 43.5 % (37-53); Lymphocytes # 4.2 10^3/uL (0.8-4.8); Lymphocytes % 32.9 %; Mean Corpuscular HGB Conc 33.6 g/dL (30-55); Mean Corpuscular Hemoglobin 29.4 pg (27-33); Mean Corpuscular Volume 87.7 fl (82-101); Mean Platelet Volume 10.1 fL (7.4-10.4); Monocytes # 1.1 10^3/uL (0.2-0.9); Monocytes % 8.6 %; Neutrophils # 7.07 10^3/uL (1.8-7.7); Nucleated Red Blood Cells % 0 %; Platelet Count 233 10^3/cmm (157-399); Red Blood Count 4.96 10^6/uL (3.85-5.65); Red Cell Distribution Width 13.2 % (12.1-15.1); White Blood Count 12.61 10^3/uL (3.29-11.43)
[2023-12-21 15:09] LABS: Alanine Aminotransferase 77 U/L (0-41); Alkaline Phosphatase 90 U/L (40-130); Anion Gap 13.2 (5-19); Aspartate Amino Transferase 42 U/L (0-40); Blood Urea Nitrogen 9 mg/dL (6-20); Calcium 8.9 mg/dL (8.5-10.5); Carbon Dioxide 27 mmol/L (22-29); Chloride 102 mmol/L (98-107); Globulin 3.2 g/dL (1.3-4.6); Glucose 100 mg/dL (65-115); Osmolality Calculated 285 mOsm/kg (285-295); Potassium 4.2 mmol/L (3.5-5.1); Sodium 138 mmol/L (136-145); Total Bilirubin 0.5 mg/dL (0.15-1.2); Total Protein 7.2 g/dL (6.6-8.7)
[2023-12-21] MEDS: ondansetron 4 MG Tablet 8 MG PO (15:11)
[2023-12-21 16:12] VITALS: BP 137/98; PULSE 89; O2SAT 97
== END 2023-12-21 16:14 | disposition home or self-care (01) ==
PROVIDERS: Emergency Provider Emergency Medicine; PCP Family Medicine
DX: K52.9 Noninfective gastroenteritis and colitis, unspecified (principal); F17.210 Nicotine dependence, cigarettes, uncomplicated
CPT/HCPCS: 36415; 74018; 80053; 85025; 99284; Q0162